=== PATIENT | male | born 1960 | race Caucasian/White ===

== ENCOUNTER 2018-03-23 08:29 | Inpatient (IN) | payer OTHER ==
[2018-03-23] VITALS (53 sets, daily range): BP systolic 84–153; BP diastolic 42–96
[~2018-03-23] VITALS: Ht 175.3 cm; Wt 77.6 kg
--- NOTE | ~2018-03-23 | 2DMMODE ---
[facility] [place] [employer] [place] [address] 2 D/M-MODE ECHOCARDIOGRAM Name: CHRISTIANMATA L Room #: 239-P [facility] IN .R.#: [id number] Admission: 03/23/18 Attend Phys: Estrella Carbone Discharge: Date of : 56 Date of Service: 03/24/18 0958 Report #: [id number] THIS REPORT FOR: //name// APPROVED REPORT Study performed: 03/24/2018 08:46:26 EXAM: Comprehensive 2D, Doppler, and color-flow Echocardiogram Patient Location: ICU Room #: 239 Status: routine BSA: 1.88 HR: 76 bpm BP: 123/73 mmHg Other Information Study Quality: Adequate Indications COPD Dyspnea CAD Hypertension/HDD Volumes Left Atrial Volume (Systole) Single Plane 4CH: 51.79 mL Single Plane 2CH: 60.17 mL LA ESV Index: 33.00 mL/m2 Aortic Valve AoV Peak Yordan.: 1.86 m/s AO Peak Gr.: 13.84 mmHg LVOT Max P.19 mmHg LVOT Max V: 1.02 m/s Mitral Valve E/A Ratio: 1.5 MV Decel. Time: 190.80 ms MV E Max Yordan.: 1.05 m/s MV A Yordan.: 0.71 m/s MV PHT: 55.33 ms IVRT: 96.89 ms Pulmonary Valve PV Peak Yordan.: 1.14 m/s PV Peak Gr.: 5.21 mmHg [facility] [address] [place] [address] 2 D/M-MODE ECHOCARDIOGRAM Name: ADOLFO GONZALES Patrick Room #: 239-P [facility] IN ..#: [id number] Admission: 03/23/18 Attend Phys: Estrella Carbone Discharge: Date of : 56 Date of Service: 03/24/18 0958 Report #: [id number] Pulmonary Vein P Vein S: 0.41 m/s P Vein A: 0.29 m/s P Vein D: 0.37 m/s P Vein A Dur.: 133.8 msec P Vein S/D Ratio: 1.11 Left Ventricle The left ventricle is normal size. There is normal LV segmental wall motion. There is normal left ventricular wall thickness. The left ventricular systolic function is normal. The left ventricular ejection fraction is within the normal range. LVEF is 55-60%. This study is not technically sufficient to allow evaluation of the LV diastolic function. Right Ventricle The right ventricle is normal size. The right ventricular systolic function is normal. Atria Left atrium is at the upper limits of normal. The right atrium size is normal. Aortic Valve Aortic valve is calcified. Mild aortic regurgitation. There is no aortic valvular stenosis. Mitral Valve The mitral valve is normal in structure. No mitral regurgitation. No evidence of mitral valve stenosis. Tricuspid Valve The tricuspid valve is normal in structure. There is no tricuspid valve regurgitation noted. Pulmonic Valve The pulmonary valve is normal in structure. There is no pulmonic valvular regurgitation. Great Vessels The aortic root is normal in size. IVC is not well visualized. Pericardium There is no pericardial effusion. <Conclusion> The left ventricular systolic function is normal. [facility] [place] [address] [place] [address] 2 D/M-MODE ECHOCARDIOGRAM Name: ADOLFO GONZALES Patrick Room #: 239-[facility] IN ..#: [id number] Admission: 03/23/18 Attend Phys: Estrella Carbone Discharge: Date of : 56 Date of Service: 03/24/18957 Report #: [id number] There is normal LV segmental wall motion. LVEF 55-60%. Aortic valve is calcified. Mild aortic regurgitation, no stenosis. The mitral valve is normal in structure. No mitral regurgitation. There is no pericardial effusion. <ELECTRONICALLY SIGNED> By: Brian Helms MD, FACC 03/24/18957 7 7 Brian Helms MD, FACC /INF
--- NOTE | ~2018-03-23 | HC ---
[facility] [place] [address] CONSULTATION Name: ADOLFO GONZALES Patrick Room #: 239-P [facility] IN M.R.#: [id number] Admission: 03/23/18 Attend Phys: Estrella Ford Discharge: Date of : 56 Report #: [id number] THIS REPORT FOR: //name// CC: FAM unknown Estrella Ford DATE OF SERVICE: 03/23/2018 REFERRING PHYSICIAN: Dr. Ford. REASON FOR REFERRAL: Acute respiratory failure. HISTORY OF PRESENT ILLNESS: The patient is a 57-year-old white male who was transferred from [facility] with acute respiratory failure. A pulmonary consultation was requested. The patient is known to this physician. He was last hospitalized in 01/2016. He is known to have severe COPD. The patient continued to smoke. According to the family, the patient had been doing fairly well for the last couple of years. He was placed on Trilogy for several months. With that, he improved with improvement of his oxygenation and nutritional status. The patient's improvement was good enough that according to the family, Trilogy was returned to the Tre[place]. He was then given BiPAP without constipation for ongoing nocturnal ventilation. Throughout all this, he continued to smoke about half a pack a day. About 6 months ago, his was diagnosed with lung cancer. She was felt to have stage 4 disease. According to the son, because of the stress, patient's health has been declining ever since. His son states that he has been losing weight. He has noticed more edema in his legs. He has been getting weaker. He has not been wearing BiPAP at night. For the past few weeks, son noticed that his dyspnea was getting worse. The night of admission, he apparently had a syncopal episode. He was then brought to the Emergency Room. In the ER, arterial blood gas revealed pH 7.06, pCO2 of 144, pO2 of 117 on FiO2. He was intubated and was transferred to [facility]. Currently, he is sedated, hemodynamically stable. Family is present including son, daughter and the . PAST MEDICAL HISTORY: As mentioned above, COPD, severity unknown, but presumed severe, ongoing tobacco use, coronary artery disease, status post stent placement, peripheral vascular disease, hypertension, and anxiety disorder, [address] [address] CONSULTATION Name: ADOLFO GONZALES Room #: 239-P [facility] IN M.R.#: [id number] Admission: 03/23/18 Attend Phys: Estrella Ford Discharge: Date of : 56 Report #: [id number] recent onset of malnutrition with weight loss and cachexia, peripheral artery disease status post carotid endarterectomy, seizure disorder, cirrhosis, spina bifida. PAST SURGICAL HISTORY: Prior vascular stent placement in the left lower extremity, right carotid endarterectomy. ALLERGIES: LISINOPRIL, ASPIRIN. MEDICATION: Lists are reviewed which include Coreg, Glucophage, Levaquin, Medrol Dosepak, Plavix, aspirin, DuoNeb, Breo, Claritin, Cozaar, K-Dur, Percocet, Xanax, Bumex, Soma, Nitrostat, Aldactone, Spiriva. FAMILY HISTORY: Noncontributory. SOCIAL HISTORY: He is , lives at home. Continues to smoke half a pack a day. Denies any alcohol use. REVIEW OF SYSTEMS: Deferred as the patient is intubated. PHYSICAL EXAMINATION: GENERAL: He is sedated. VITAL SIGNS: Temperature is 99 degrees Fahrenheit, pulse is 90, respiratory rate is 16, blood pressure is 100/60 mmHg. HEENT: Normocephalic, atraumatic. NECK: Supple, without lymphadenopathy or thyromegaly. He is orally intubated. CHEST: Breath sounds are decreased bilaterally. Few scattered crackles in the bases. CARDIOVASCULAR: Normal S1, S2. No murmurs or gallop. There is no JVD. There is no carotid bruit. Pulses are 2+/4+ bilaterally. ABDOMEN: Soft, nontender, no organomegaly or masses felt. GENITOURINARY: Deferred. RECTAL: Deferred. EXTREMITIES: There are no cyanosis or clubbing, but remarkable for 3+ bilateral pretibial edema. LABORATORY DATA: Portable chest x-ray shows ET tube at the thoracic inlet, left lower lobe infiltrate. Electrolytes are normal, creatinine 0.6. Troponin 0.11. Arterial blood gas revealed pH 7.34, pCO2 of 63, pO2 of 73 on FiO2 of 60%. IMPRESSION: 1. Acute on chronic hypercapnic hypoxic respiratory failure. 2. Chronic obstructive pulmonary disease exacerbation, severe. 3. Chronic hypercapnic respiratory failure, he is on O2 at baseline. 4. Ongoing tobacco use, smoking less than a pack a day. 5. 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 [facility] [address] [place] [address] CONSULTATION Name: ADOLFO GONZALES Room #: 239-P [facility] IN M.R.#: [id number] Admission: 03/23/18 Attend Phys: Estrella Ford Discharge: Date of : 56 Report #: [id number] 6. Bilateral lower extremity edema, likely related to right-sided heart failure due to cor pulmonale. Recommend check an echocardiogram. 7. Left lower lobe infiltrates, suspect pneumonia, possible aspiration. 8. Coronary artery disease, status post stent placement in the past. 9. Peripheral vascular disease status post carotid endarterectomy as mentioned above. 10. Transient hypotension, much improved, likely due to volume depletion, medication. RECOMMENDATION: We will continue mechanical ventilation, wean O2 for saturation 90%. Agree with broad-spectrum antibiotics, corticosteroids. Agree with Doppler ultrasound to rule out DVT. Would also recommend echocardiogram. DVT and GI prophylaxis is recommended. The above findings were discussed with the patient's children along with the . My concerns are his COPD has slightly worsened over time, especially given recent weight loss. Suspect his pulmonary impairment is likely severe. Overall, prognosis is felt to be guarded. Thank you for this consultation. <ELECTRONICALLY SIGNED> By: Beltran Fajardo MD 03/24/18 1214 1611 3150 Beltran Fajardo MD /nt
[~2018-03-23 08:29] MED LIST: ACCUNEB SO1.25 MG/1 INH; ALBUTEROL SULFAT4 MG PO; ALDACTONE50 MG PO; ALPRAZOLAM 0.50.5 M1 PO; ASPIRIN EC81 M1 PO; BAYER CHEWABLE81 MG PO; BREO ELLIPTA 11 EACH IH; BUMETANIDE0.25 MG/1 PO; BYSTOLIC 5 MG5 M1 PO; CARISOPRODOL 3350 MG PO; CARVEDILOL12.5 MG PO; CHANTIX1 MG; CLARITIN10 MG PO; COREG6.25 MG PO; COZAAR 50 MG TA50 M2 PO; DIOVAN40 MG PO; DIVALPROEX SOD250 M3 PO; DOXYCYCLINE 10100 M2 PO; FENOFIBRATE145 MG PO; KEPPRA 500 MG500 M1 PO; LASIX 20 MG TAB20 MG PO; LEVAQUIN 250 M250 MG PO; LEVAQUIN 500 M500 M2 PO; LISINOPRIL10 MG PO; LOPRESSOR 50 MG50 M1 PO; MEDROLDOSEPACK PO; METFORMIN HCL500 MG PO; MUCINEX TA600 MG/TA2 PO; NICOTINE TRANSD21 M1 TRANSDERM; NITROGLYCERIN0.4 MG SUBLING; PACERONE 200 M200 M1 PO; PAXIL20 MG PO; PERCOCET 10-321 EACH PO; PERCOCET 7.5-31 EACH PO; PERCOCET PO; PLAVIX 75 MG TA75 MG PO; POTASSIUM20 PO; PREDNISONE 10 M10 M1 PO; PREDNISONE 10 M10 MG PO; PREDNISONE 20 M20 M1 PO; PREDNISONE 20 M20 MG PO; PROMETHAZINE/C118 ML PO; PROPRANOLOL 1010 MG PO; PROTONIX 20 MG20 M1 PO; SIMVASTATIN40 MG PO; SPIRIVA INH; XANAX 0.5 MG0.5 MG PO; ZANTAC 150MG T150 M1 PO
[2018-03-23 10:07] LABS: BE(vivo) 5.8 mmol/L (-2 to +3); HCO3 33.3 mmol/L (22.0-26.0); PCO2 63.1 mmHg (35.0-45.0); sO2 93.4 % (92.0-98.0)
[2018-03-23 11:03] LABS: CALCIUM 8.1 mg/dL (8.5-10.1); CREATININE 0.6 mg/dL (0.7-1.3); MAGNESIUM 1.5 mg/dL (1.8-2.4)
[2018-03-23] MEDS ORDERED: ALBUTEROL2.5 MG/31 INH (16:18)
[2018-03-23] MEDS ORDERED: PERCOCET 10-321 EAC1 PO (18:10)
[2018-03-23] MEDS ORDERED: VITAMIN D50000 UNIT PO (18:12)
[2018-03-23] MEDS ORDERED: UNICOMPLEX M TA1 TA1 PO (18:13)
[2018-03-23] MEDS ORDERED: VISTARIL 25 MG25 M1 PO (18:14)
[2018-03-23] MEDS ORDERED: SIMVASTATIN40 MG PO (18:15)
[2018-03-23] MEDS ORDERED: PREDNISONE 20 M20 MG PO (18:16)
[2018-03-24] VITALS (18 sets, daily range): BP systolic 97–155; BP diastolic 55–110
[2018-03-24 04:58] LABS: BE(vivo) 7.1 mmol/L (-2 to +3); HCO3 30.8 mmol/L (22.0-26.0); PO2 90.7 mmHg (80.0-100.0); pH 7.504 (7.360-7.450); sO2 97.5 % (92.0-98.0)
[2018-03-24 06:53] LABS: HEMOGLOBIN 11.4 gm/dL (14.0-18.0); MCH 27.8 pg (26.0-34.0)
[2018-03-24 06:54] LABS: HEMATOCRIT 34.4 % (42.0-52.0); MCHC 33.2 g/dL (28.0-37.0); MCV 83.7 fL (80.0-100.0); RBC 4.12 mil/uL (4.50-6.00); RDW 15.8 % (10.5-14.5); WBC 10.3 thou/uL (4.0-11.0)
[2018-03-24 07:10] LABS: ALBUMIN 2.1 g/dL (3.4-5.0); CALCIUM 8.1 mg/dL (8.5-10.1); CREATININE 0.6 mg/dL (0.7-1.3); MAGNESIUM 1.7 mg/dL (1.8-2.4); POTASSIUM 4.1 mmol/L (3.5-5.1); TOTAL BILIRUBIN 0.2 mg/dL (<0.1-1.0); TOTAL PROTEIN 4.7 g/dL (6.4-8.2); TROPONIN-I 0.05 ng/mL (<0.06)
[2018-03-25] VITALS (14 sets, daily range): BP systolic 109–156; BP diastolic 54–89
[2018-03-25 05:28] LABS: BE(vivo) 3.9 mmol/L (-2 to +3); HCO3 27.5 mmol/L (22.0-26.0); PCO2 38.1 mmHg (35.0-45.0); PO2 109.9 mmHg (80.0-100.0); pH 7.477 (7.360-7.450); sO2 98.3 % (92.0-98.0)
[2018-03-25 05:29] LABS: HEMATOCRIT 33.1 % (42.0-52.0); MCH 27.6 pg (26.0-34.0); MCHC 33.2 g/dL (28.0-37.0); MCV 83.2 fL (80.0-100.0); RBC 3.97 mil/uL (4.50-6.00); RDW 16.2 % (10.5-14.5); WBC 5.7 thou/uL (4.0-11.0)
[2018-03-25 05:40] LABS: CALCIUM 8.5 mg/dL (8.5-10.1); CREATININE 0.4 mg/dL (0.7-1.3); POTASSIUM 3.3 mmol/L (3.5-5.1)
[2018-03-26] VITALS (28 sets, daily range): BP systolic 121–161; BP diastolic 66–98
[2018-03-26 04:58] LABS: HEMATOCRIT 33.6 % (42.0-52.0); HEMOGLOBIN 11.1 gm/dL (14.0-18.0); MCH 27.4 pg (26.0-34.0); MCV 83.2 fL (80.0-100.0); RBC 4.04 mil/uL (4.50-6.00); RDW 16.6 % (10.5-14.5)
[2018-03-26 05:10] LABS: CALCIUM 8.2 mg/dL (8.5-10.1); CREATININE 0.4 mg/dL (0.7-1.3); POTASSIUM 4.1 mmol/L (3.5-5.1)
[2018-03-26 05:14] LABS: BE(vivo) 1.5 mmol/L (-2 to +3); HCO3 26.9 mmol/L (22.0-26.0); PCO2 45.6 mmHg (35.0-45.0); PO2 105.3 mmHg (80.0-100.0); pH 7.389 (7.360-7.450); sO2 97.7 % (92.0-98.0)
[2018-03-26] MEDS ORDERED: XANAX 0.5 MG0.5 MG PO (13:34)
[2018-03-26] MEDS ORDERED: PERCOCET 10-321 EACH PO (13:36)
[2018-03-27] VITALS (28 sets, daily range): BP systolic 122–196; BP diastolic 63–113
[2018-03-27 04:31] LABS: CALCIUM 8.2 mg/dL (8.5-10.1); CREATININE 0.3 mg/dL (0.7-1.3); POTASSIUM 4.4 mmol/L (3.5-5.1)
[2018-03-27 04:32] LABS: HEMATOCRIT 33.7 % (42.0-52.0); HEMOGLOBIN 11.1 gm/dL (14.0-18.0); MCH 27.5 pg (26.0-34.0); MCHC 32.8 g/dL (28.0-37.0); MCV 83.8 fL (80.0-100.0); RBC 4.03 mil/uL (4.50-6.00); RDW 16.7 % (10.5-14.5); WBC 5.3 thou/uL (4.0-11.0)
[2018-03-27 08:06] LABS: PCO2 46.6 mmHg (35.0-45.0); PO2 77.4 mmHg (80.0-100.0); pH 7.441 (7.360-7.450); sO2 95.8 % (92.0-98.0)
[2018-03-28] VITALS (20 sets, daily range): BP systolic 110–158; BP diastolic 59–136
[2018-03-28 04:22] LABS: CALCIUM 8.3 mg/dL (8.5-10.1); CREATININE 0.3 mg/dL (0.7-1.3)
[2018-03-28 04:31] LABS: HEMATOCRIT 36.2 % (42.0-52.0); MCH 27.4 pg (26.0-34.0); MCHC 33.1 g/dL (28.0-37.0); MCV 82.9 fL (80.0-100.0); RBC 4.37 mil/uL (4.50-6.00); RDW 16.3 % (10.5-14.5); WBC 7.3 thou/uL (4.0-11.0)
[2018-03-28 05:39] LABS: BE(vivo) 11.9 mmol/L (-2 to +3); HCO3 35.2 mmol/L (22.0-26.0); PCO2 40.4 mmHg (35.0-45.0); PO2 123.6 mmHg (80.0-100.0); pH 7.558 (7.360-7.450); sO2 98.8 % (92.0-98.0)
[2018-03-29] VITALS (7 sets, daily range): BP systolic 112–164; BP diastolic 70–96
[2018-03-29 06:43] LABS: HEMATOCRIT 37.6 % (42.0-52.0); HEMOGLOBIN 12.4 gm/dL (14.0-18.0); MCH 27.3 pg (26.0-34.0); MCHC 33.1 g/dL (28.0-37.0); MCV 82.5 fL (80.0-100.0); RBC 4.55 mil/uL (4.50-6.00); RDW 16.6 % (10.5-14.5); WBC 7.9 thou/uL (4.0-11.0)
[2018-03-29 06:53] LABS: CALCIUM 8.4 mg/dL (8.5-10.1); CREATININE 0.4 mg/dL (0.7-1.3); POTASSIUM 3.7 mmol/L (3.5-5.1)
[2018-03-29 10:50] LABS: URINE BILIRUBIN NEGATIVE (Negative); URINE BLOOD NEGATIVE (Negative); URINE CLARITY CLEAR; URINE COLOR YELLOW; URINE GLUCOSE-RANDOM* NEGATIVE (Negative); URINE KETONES NEGATIVE (Negative); URINE LEUKOCYTES-REFLEX NEGATIVE (Negative); URINE PROTEIN (DIPSTICK) NEGATIVE (Negative); URINE SPECIFIC GRAVITY <= 1.005 (1.005-1.035)
[2018-03-29 10:51] LABS: URINE NITRITE-REFLEX POSITIVE (Negative)
[2018-03-29 10:58] LABS: BACTERIA-REFLEX 1-9 Few /HPF (None Seen); CASTS None Seen /LPF (None Seen); CRYSTALS None Seen /LPF (None Seen); SQUAMOUS None Seen /LPF (0-3); URINE RBC 0-2 Rare /HPF (0-2); URINE WBC-REFLEX None Seen /HPF (0-5)
[2018-03-30 03:52] VITALS: BP 113/65
[2018-03-30 07:18] VITALS: BP 143/74
[2018-03-30 11:18] VITALS: BP 123/87
[2018-03-30 15:21] VITALS: BP 109/70
[2018-03-30 19:28] VITALS: BP 139/51
[2018-03-31 04:00] VITALS: BP 103/79
[2018-03-31 06:12] LABS: ALBUMIN 2.8 g/dL (3.4-5.0); CALCIUM 8.6 mg/dL (8.5-10.1); CREATININE 0.4 mg/dL (0.7-1.3); PHOSPHORUS 2.8 mg/dL (2.5-4.9); POTASSIUM 3.9 mmol/L (3.5-5.1)
[2018-03-31 06:23] VITALS: BP 142/56
[2018-03-31 08:28] VITALS: BP 134/82
[2018-03-31] MEDS ORDERED: LEVAQUIN 500 M500 M2 PO (08:55)
[2018-03-31] MEDS ORDERED: PREDNISONE 5 MG5 M1 PO (08:59)
[2018-03-31 11:48] VITALS: BP 134/82
== END 2018-03-31 12:08 | disposition home health service (06) | DRG 207 ==
LOC: ICU 08:29 → 3W 03-28 17:41 → ENTRNSPT 03-31 11:59 → EDTRNSPTSTS 03-31 12:01 → 3W 03-31 12:08
PROVIDERS: Hospitalist; Internal Medicine Pulmonary Disease; Nurse Practitioner Family
DX: J96.22 Acute and chronic respiratory failure with hypercapnia (principal); G93.40 Encephalopathy, unspecified; J18.1 Lobar pneumonia, unspecified organism; J44.1 Chronic obstructive pulmonary disease with (acute) exacerbation; F11.20 Opioid dependence, uncomplicated; J98.11 Atelectasis; J44.0 Chronic obstructive pulmonary disease with (acute) lower respiratory infection; J96.21 Acute and chronic respiratory failure with hypoxia; I25.10 Atherosclerotic heart disease of native coronary artery without angina pectoris; I73.9 Peripheral vascular disease, unspecified; I10 Essential (primary) hypertension; F41.9 Anxiety disorder, unspecified; G40.909 Epilepsy, unspecified, not intractable, without status epilepticus; F17.210 Nicotine dependence, cigarettes, uncomplicated; I95.89 Other hypotension; E83.42 Hypomagnesemia; E78.5 Hyperlipidemia, unspecified; I27.81 Cor pulmonale (chronic); R49.0 Dysphonia; F41.8 Other specified anxiety disorders; G89.29 Other chronic pain; M54.9 Dorsalgia, unspecified; Z95.5 Presence of coronary angioplasty implant and graft; Z88.6 Allergy status to analgesic agent; Z88.8 Allergy status to other drugs, medicaments and biological substances; Z79.82 Long term (current) use of aspirin; Z86.73 Personal history of transient ischemic attack (TIA), and cerebral infarction without residual deficits; I25.2 Old myocardial infarction; Q05.9 Spina bifida, unspecified; Z79.899 Other long term (current) drug therapy
CPT/HCPCS: 10078; 10779; 27000

== ENCOUNTER 2018-04-10 11:28 | Inpatient (IN) | payer OTHER ==
[2018-04-10] VITALS (50 sets, daily range): BP systolic 76–137; BP diastolic 54–82
--- NOTE | ~2018-04-10 | EKG ---
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 ADAMS : 1960 Requested By: Efra Blake Order Number: [id number] MD: Brian Helms Measurements Intervals [place] Rate: 95 P: -20 NE: 137 QRS: 73 QRSD: 82 T: 84 QT: 423 QTc: 532 Interpretive Statements Sinus rhythm Probable left atrial enlargement Abnormal R-wave progression, early transition Borderline T wave abnormalities Prolonged QT interval Compared to ECG 08/24/2015 14:48:48 T-wave abnormality now present Prolonged QT interval now present Atrial premature complex(es) no longer present Electronically Signed On 04-10-2018 12:55:11 CDT by Brian Helms [email or web address] <ELECTRONICALLY SIGNED> By: Brian Helms MD, FAC 04/10/18 1255 1233 1233 Brian Helms MD, FAC /EPI
--- NOTE | ~2018-04-10 | H ---
[facility] [place] [place] [address] HISTORY AND PHYSICAL Name: ADOLFO GONZALES Patrick Room #: 241-P [facility] IN M.R.#: [id number] Admission: 04/10/18 Attend Phys: Efra Blake MD Discharge: Date of : 56 Report #: [id number] THIS REPORT FOR: //name// CC: FAM unknown Efra Blake DATE OF SERVICE: 04/10/2018 CHIEF COMPLAINT: Shortness of breath. HISTORY OF PRESENT ILLNESS: The patient is a 57-year-old male with history of severe COPD, on home oxygen 3 liter per minute, 24 hours a day, on prednisone 20 mg once a day, presented to [facility] Emergency Room secondary to worsening shortness of breath. According to the patient's , symptoms started this morning. There is no change in his mental status. In fact, his son was able to take him to the Emergency Room at [facility]. No history of any fever or chills. No cough, expectoration. Workup in the Emergency Room at [facility] showed a slightly elevated BNP of 794. His white count was elevated at 18,000. His BUN and creatinine were 18 and 0.6. Chest x-ray showed no acute abnormality. Blood gas showed [id number] respiratory failure. His initial blood gas was reported as 7.2 pH, pCO2 of 107, pO2 of 303. The patient was subsequently intubated and was flighted to [facility]. The patient is presently seen in the ICU. The patient is sedated. He does not follow any commands. Family is at bedside. PAST MEDICAL HISTORY: Significant for COPD, history of AR in the past, TIAs, seizure disorder. Had coronary stents placed in the past. No history of any peptic ulcer disease, no bleeding disorder. No history of any known cancer. He does have severe COPD, on home oxygen 3 liters per minute, on prednisone 20 mg once a day. He has been on Trilogy in the past. Apparently, he is trying to get a new Trilogy machine. His previous Trilogy was replaced with BiPAP by [facility]. He also has history of spina bifida. History of seizure and hyperlipidemia. PAST SURGICAL HISTORY: Significant for peripheral vascular disease status post stent, history of carotid endarterectomy and coronary artery disease with stents. ALLERGIES: No known drug allergy according to the family. HOME MEDICATIONS: Reviewed, please look at the nursing documentation of home medications. SOCIAL HISTORY: Still smokes half a pack a day. No history of alcohol abuse or illicit drug abuse. [address] [address] HISTORY AND PHYSICAL Name: ADOLFO GONZALES Room #: 241-P [facility] IN ..#: [id number] Admission: 04/10/18 Attend Phys: Efra Blake MD Discharge: Date of : 56 Report #: [id number] FAMILY HISTORY: Unable to obtain. REVIEW OF SYSTEMS: Unable to obtain from the patient because he is intubated. According to the patient's family, there is no nausea or vomiting, no abdominal pain, no fever or chills. He has chronic leg swelling. Apparently, his left leg is smaller than the right leg because of spina bifida. PHYSICAL EXAMINATION: VITAL SIGNS: Blood pressure is 133/71, heart rate of 80 per minute, afebrile. He is saturating 100% on 35% of FiO2. GENERAL: The patient is on a ventilator. Not responding to any verbal stimuli. EYES: Pupils equal, reactive to light. NECK: Supple, no JVD, no bruit, no lymphadenopathy. CARDIOVASCULAR: S1, S2. No S3. CHEST: Bilateral air entry present. Clear on auscultation. Very few scattered wheezes noted. ABDOMEN: Soft, bowel sounds present, no mass, no organomegaly, no tenderness. PERIPHERY: Has around 2-3+ edema in the right leg and 1-2+ pedal edema on the left leg. Dorsalis pedis 1+ bilaterally. LABORATORY DATA: Reviewed. His labs at [facility] showed a glucose of 268. BUN and creatinine are within normal limit. Magnesium slightly low at 1.4. White count was 18,000. D-dimer is elevated at 632. His BNP is 794. Chest x-ray showed no acute abnormality. He had an EKG done at [facility] which shows sinus tachycardia at rate of 121 per minute. There are occasional premature ventricular complexes, nonspecific ST segment T-wave changes. Chest x-ray done here showed no acute abnormality. ASSESSMENT AND PLAN: 1. Zlqnk-xd-galzzku respiratory failure secondary to chronic obstructive pulmonary disease exacerbation. The patient is hypercapnic. The patient will be continued on ventilator. Pulmonary has been consulted for ventilator management, will be continued on IV steroids and DuoNebs. 2. Leukocytosis. His chest x-ray showed no evidence of any infiltrate. We will obtain UA to rule out any infections, leukocytosis could be related to stress/prednisone therapy. 3. Elevated D-dimer. We will go ahead and obtain a venous Doppler of lower extremity and CTA of the chest to rule out any thromboembolism. 4. Hypomagnesemia. Magnesium will be repeated again and replace as needed. 5. Deep venous thrombosis prophylaxis. The patient will be on Lovenox for deep venous thrombosis prophylaxis. 6. Coronary artery disease status post stent. We will obtain a troponin and another EKG. 7. History of seizure disorder. The patient is on Depakote, which will be continued. [facility] [address] [place] [address] HISTORY AND PHYSICAL Name: ADOLFO GONZALES Patrick Room #: 241-P [facility] IN .R.#: [id number] Admission: 04/10/18 Attend Phys: Efra Blake MD Discharge: Date of : 56 Report #: [id number] 8. History of transient ischemic attack, on Plavix and aspirin, which will be continued. Patient's family stated that he is not allergic to any medication. Treatment plan has been explained to the patient's family at bedside in detail. <ELECTRONICALLY SIGNED> By: Efra Blake MD 04/10/18 1344 1216 1303 Efra Blake MD /nt
[~2018-04-10 11:28] MED LIST changes: +ALBUTEROL2.5 MG/31 INH; +PERCOCET 10-321 EAC1 PO; +PREDNISONE 5 MG5 M1 PO; +UNICOMPLEX M TA1 TA1 PO; +VISTARIL 25 MG25 M1 PO; +VITAMIN D50000 UNIT PO
[2018-04-10 12:29] LABS: BE(vivo) 5.6 mmol/L (-2 to +3); HCO3 33.7 mmol/L (22.0-26.0); PO2 58.9 mmHg (80.0-100.0); sO2 87.2 % (92.0-98.0)
[2018-04-10 12:30] LABS: ABSOLUTE NEUTROPHILS 9.3 thou/uL (1.4-8.2); BASOPHILS 0.7 % (0.0-2.0); EOSINOPHILS 0.2 % (0.0-3.0); HEMATOCRIT 32.8 % (42.0-52.0); LYMPHOCYTES 2.2 % (24.0-44.0); MCH 28.2 pg (26.0-34.0); MCHC 33.5 g/dL (28.0-37.0); MCV 84.2 fL (80.0-100.0); MONOCYTES 3.3 % (1.0-8.0); PLATELET COUNT 165 thou/uL (150-400); POLYS 93.6 % (36.0-66.0); WBC 9.9 thou/uL (4.0-11.0)
[2018-04-10 12:30] LABS: PCO2 68.3 mmHg (35.0-45.0); pH 7.311 (7.360-7.450)
[2018-04-10 12:43] LABS: APTT 23.1 Seconds (24.5-32.8); FIBRINOGEN 350.6 mg/dL (210-360); INR 1.1
[2018-04-10 12:47] LABS: CALCIUM 7.6 mg/dL (8.5-10.1); CREATININE 0.5 mg/dL (0.7-1.3); POTASSIUM 3.4 mmol/L (3.5-5.1)
[2018-04-10 12:55] LABS: TROPONIN-I 0.07 ng/mL (<0.06)
[2018-04-10 12:55] LABS: URINE BILIRUBIN NEGATIVE (Negative); URINE BLOOD TRACE (Negative); URINE CLARITY CLEAR; URINE COLOR YELLOW; URINE GLUCOSE-RANDOM* NEGATIVE (Negative); URINE KETONES NEGATIVE (Negative); URINE LEUKOCYTES-REFLEX NEGATIVE (Negative); URINE NITRITE-REFLEX NEGATIVE (Negative); URINE PROTEIN (DIPSTICK) 2+ (Negative); URINE SPECIFIC GRAVITY >= 1.030 (1.005-1.035); URINE UROBILINOGEN 0.2 E.U./dl (0.2-1.0)
[2018-04-10 13:04] LABS: CASTS None Seen /LPF (None Seen); CRYSTALS None Seen /LPF (None Seen); SQUAMOUS 0-3 Few /LPF (0-3); URINE RBC None Seen /HPF (0-2); URINE WBC-REFLEX None Seen /HPF (0-5)
[2018-04-10 13:05] LABS: BACTERIA-REFLEX 1-9 Few /HPF (None Seen)
[2018-04-11] VITALS (92 sets, daily range): BP systolic 74–137; BP diastolic 45–98
[2018-04-11 03:46] LABS: ALBUMIN 2.3 g/dL (3.4-5.0); CALCIUM 8.2 mg/dL (8.5-10.1); CREATININE 0.4 mg/dL (0.7-1.3); MAGNESIUM 1.8 mg/dL (1.8-2.4); POTASSIUM 4.3 mmol/L (3.5-5.1); TOTAL BILIRUBIN 0.3 mg/dL (<0.1-1.0); TOTAL PROTEIN 5.2 g/dL (6.4-8.2)
[2018-04-11 04:18] LABS: ABSOLUTE NEUTROPHILS 7.8 thou/uL (1.4-8.2); BASOPHILS 0.1 % (0.0-2.0); HEMATOCRIT 29.5 % (42.0-52.0); HEMOGLOBIN 10.1 gm/dL (14.0-18.0); LYMPHOCYTES 6.9 % (24.0-44.0); MCH 28.2 pg (26.0-34.0); MCHC 34.1 g/dL (28.0-37.0); MCV 82.7 fL (80.0-100.0); MONOCYTES 2.8 % (1.0-8.0); PLATELET COUNT 153 thou/uL (150-400); POLYS 90.2 % (36.0-66.0); RBC 3.56 mil/uL (4.50-6.00); RDW 17.4 % (10.5-14.5); WBC 8.7 thou/uL (4.0-11.0)
[2018-04-11 05:35] LABS: BE(vivo) 5.8 mmol/L (-2 to +3); HCO3 31.1 mmol/L (22.0-26.0); PCO2 48.7 mmHg (35.0-45.0); PO2 62.8 mmHg (80.0-100.0); pH 7.423 (7.360-7.450); sO2 92.3 % (92.0-98.0)
[2018-04-11 09:05] LABS: BE(vivo) 7.1 mmol/L (-2 to +3); HCO3 32.4 mmol/L (22.0-26.0); PCO2 49.9 mmHg (35.0-45.0)
[2018-04-11 14:09] LABS: BE(vivo) 6.4 mmol/L (-2 to +3); HCO3 31.2 mmol/L (22.0-26.0); PCO2 46.2 mmHg (35.0-45.0); PO2 92.8 mmHg (80.0-100.0); pH 7.447 (7.360-7.450); sO2 97.3 % (92.0-98.0)
[2018-04-12] VITALS (35 sets, daily range): BP systolic 126–164; BP diastolic 68–103
[2018-04-12 05:41] LABS: BE(vivo) 5.9 mmol/L (-2 to +3); HCO3 30.9 mmol/L (22.0-26.0); PCO2 46.5 mmHg (35.0-45.0); PO2 90.9 mmHg (80.0-100.0); sO2 97.1 % (92.0-98.0)
[2018-04-12 05:58] LABS: ABSOLUTE NEUTROPHILS 5.2 thou/uL (1.4-8.2); BASOPHILS 0.1 % (0.0-2.0); HEMOGLOBIN 9.5 gm/dL (14.0-18.0); LYMPHOCYTES 7.6 % (24.0-44.0); MCH 28.1 pg (26.0-34.0); MCV 82.9 fL (80.0-100.0); MONOCYTES 2.3 % (1.0-8.0); PLATELET COUNT 122 thou/uL (150-400); RBC 3.37 mil/uL (4.50-6.00); RDW 17.1 % (10.5-14.5); WBC 5.7 thou/uL (4.0-11.0)
[2018-04-12 06:10] LABS: CALCIUM 8.4 mg/dL (8.5-10.1); CREATININE 0.4 mg/dL (0.7-1.3); MAGNESIUM 1.6 mg/dL (1.8-2.4); POTASSIUM 4.1 mmol/L (3.5-5.1)
[2018-04-12 11:21] LABS: BE(vivo) 4.9 mmol/L (-2 to +3); HCO3 29.1 mmol/L (22.0-26.0); PCO2 41.4 mmHg (35.0-45.0); PO2 80.5 mmHg (80.0-100.0); pH 7.465 (7.360-7.450); sO2 96.4 % (92.0-98.0)
[2018-04-13] VITALS (17 sets, daily range): BP systolic 117–164; BP diastolic 60–120
[2018-04-13 04:01] LABS: HEMATOCRIT 30.9 % (42.0-52.0); HEMOGLOBIN 10.6 gm/dL (14.0-18.0); MCH 28.4 pg (26.0-34.0); MCHC 34.3 g/dL (28.0-37.0); MCV 82.7 fL (80.0-100.0); RBC 3.73 mil/uL (4.50-6.00); WBC 4.3 thou/uL (4.0-11.0)
[2018-04-13 04:15] LABS: CALCIUM 7.8 mg/dL (8.5-10.1); CREATININE 0.3 mg/dL (0.7-1.3); POTASSIUM 3.5 mmol/L (3.5-5.1)
[2018-04-14 04:04] VITALS: BP 156/87
[2018-04-14 05:33] LABS: HEMATOCRIT 35.2 % (42.0-52.0); HEMOGLOBIN 11.8 gm/dL (14.0-18.0); MCH 27.6 pg (26.0-34.0); MCHC 33.6 g/dL (28.0-37.0); MCV 82.3 fL (80.0-100.0); RBC 4.27 mil/uL (4.50-6.00); RDW 17.3 % (10.5-14.5); WBC 4.5 thou/uL (4.0-11.0)
[2018-04-14 05:42] LABS: CALCIUM 8.7 mg/dL (8.5-10.1); CREATININE 0.4 mg/dL (0.7-1.3); MAGNESIUM 1.7 mg/dL (1.8-2.4)
[2018-04-14 07:22] VITALS: BP 149/74
[2018-04-14 08:39] LABS: HCO3 25.8 mmol/L (22.0-26.0); PCO2 37.4 mmHg (35.0-45.0); PO2 62.2 mmHg (80.0-100.0); pH 7.456 (7.360-7.450)
[2018-04-14 15:14] VITALS: BP 115/66
[2018-04-14 19:30] VITALS: BP 103/68
[2018-04-15 04:00] VITALS: BP 141/75
[2018-04-15 06:22] LABS: HEMATOCRIT 32.1 % (42.0-52.0); MCH 28.3 pg (26.0-34.0); MCHC 34.3 g/dL (28.0-37.0); MCV 82.7 fL (80.0-100.0); RBC 3.88 mil/uL (4.50-6.00); RDW 17.2 % (10.5-14.5); WBC 3.5 thou/uL (4.0-11.0)
[2018-04-15 06:35] LABS: CALCIUM 8.5 mg/dL (8.5-10.1); CREATININE 0.5 mg/dL (0.7-1.3); MAGNESIUM 1.4 mg/dL (1.8-2.4); POTASSIUM 4.1 mmol/L (3.5-5.1)
[2018-04-15 08:00] VITALS: BP 120/69
[2018-04-15 16:45] VITALS: BP 128/78
[2018-04-15 20:00] VITALS: BP 110/55
[2018-04-16 04:30] VITALS: BP 102/75
[2018-04-16 06:16] LABS: ABSOLUTE NEUTROPHILS 3.8 thou/uL (1.4-8.2); BASOPHILS 0.1 % (0.0-2.0); HEMATOCRIT 32.2 % (42.0-52.0); HEMOGLOBIN 10.9 gm/dL (14.0-18.0); LYMPHOCYTES 14.1 % (24.0-44.0); MCH 28.2 pg (26.0-34.0); MCHC 33.8 g/dL (28.0-37.0); MCV 83.6 fL (80.0-100.0); MONOCYTES 5.2 % (1.0-8.0); PLATELET COUNT 127 thou/uL (150-400); POLYS 80.6 % (36.0-66.0); RBC 3.85 mil/uL (4.50-6.00); RDW 17.6 % (10.5-14.5); WBC 4.7 thou/uL (4.0-11.0)
[2018-04-16 06:27] LABS: CALCIUM 8.8 mg/dL (8.5-10.1); CREATININE 0.4 mg/dL (0.7-1.3); MAGNESIUM 1.4 mg/dL (1.8-2.4); POTASSIUM 5.1 mmol/L (3.5-5.1)
[2018-04-16 07:08] VITALS: BP 112/66
[2018-04-16 16:24] VITALS: BP 105/83
[2018-04-16 18:00] VITALS: BP 131/74
[2018-04-17 05:47] LABS: HEMATOCRIT 31.5 % (42.0-52.0); HEMOGLOBIN 10.4 gm/dL (14.0-18.0); MCH 27.9 pg (26.0-34.0); MCHC 32.8 g/dL (28.0-37.0); MCV 84.9 fL (80.0-100.0); RBC 3.71 mil/uL (4.50-6.00); RDW 17.9 % (10.5-14.5); WBC 3.8 thou/uL (4.0-11.0)
[2018-04-17 06:37] LABS: CALCIUM 9.2 mg/dL (8.5-10.1); CREATININE 0.6 mg/dL (0.7-1.3); MAGNESIUM 1.2 mg/dL (1.8-2.4); POTASSIUM 4.6 mmol/L (3.5-5.1)
[2018-04-17 07:50] VITALS: BP 107/71
[2018-04-17] MEDS ORDERED: AUGMENTIN 875-1 EACH PO (10:15)
[2018-04-17] MEDS ORDERED: PREDNISONE 10 M10 MG PO ×2 (10:15→11:03)
[2018-04-17] MEDS ORDERED: MUCINEX600 MG PO (10:15)
[2018-04-17] MEDS ORDERED: MAG6464 MG PO (10:15)
[2018-04-17 10:39] VITALS: BP 107/71
== END 2018-04-17 19:08 | disposition home health service (06) | DRG 871 ==
LOC: ICU 11:28 → 4E 04-13 15:58 → SICU 04-16 17:46 → ENTRNSPT 04-17 18:37 → SICU 04-17 19:08
PROVIDERS: Hospitalist; Internal Medicine; Internal Medicine Pulmonary Disease; Nurse Practitioner Acute Care
PROC: 02HV33Z Insertion of Infusion Device into Superior Vena Cava, Percutaneous Approach (ICD-10-PCS; principal; 2018-04-10)
PROC: 0BH17EZ Insertion of Endotracheal Airway into Trachea, Via Natural or Artificial Opening (ICD-10-PCS; principal; 2018-04-10)
PROC: 5A1945Z Respiratory Ventilation, 24-96 Consecutive Hours (ICD-10-PCS; principal; 2018-04-10)
DX: A41.9 Sepsis, unspecified organism (principal); J18.9 Pneumonia, unspecified organism; J96.21 Acute and chronic respiratory failure with hypoxia; J96.22 Acute and chronic respiratory failure with hypercapnia; G93.40 Encephalopathy, unspecified; E43 Unspecified severe protein-calorie malnutrition; J44.1 Chronic obstructive pulmonary disease with (acute) exacerbation; F11.20 Opioid dependence, uncomplicated; T17.890A Other foreign object in other parts of respiratory tract causing asphyxiation, initial encounter; J44.0 Chronic obstructive pulmonary disease with (acute) lower respiratory infection; I69.951 Hemiplegia and hemiparesis following unspecified cerebrovascular disease affecting right dominant side; G40.909 Epilepsy, unspecified, not intractable, without status epilepticus; I73.9 Peripheral vascular disease, unspecified; D72.829 Elevated white blood cell count, unspecified; E83.42 Hypomagnesemia; I25.10 Atherosclerotic heart disease of native coronary artery without angina pectoris; G89.29 Other chronic pain; X58.XXXA Exposure to other specified factors, initial encounter; Y93.89 Activity, other specified; Y92.89 Other specified places as the place of occurrence of the external cause; Y99.8 Other external cause status; D63.8 Anemia in other chronic diseases classified elsewhere; F32.9 Major depressive disorder, single episode, unspecified; F41.9 Anxiety disorder, unspecified; E78.5 Hyperlipidemia, unspecified; I27.81 Cor pulmonale (chronic); Z88.6 Allergy status to analgesic agent; I25.2 Old myocardial infarction; Z95.5 Presence of coronary angioplasty implant and graft; Q05.9 Spina bifida, unspecified; Z79.899 Other long term (current) drug therapy; Z88.8 Allergy status to other drugs, medicaments and biological substances; Z68.24 Body mass index [BMI] 24.0-24.9, adult
CPT/HCPCS: 10078; 10783; 15002; 27000

== ENCOUNTER 2018-05-02 08:43 | Inpatient (IN) | payer OTHER ==
[~2018-05-02] VITALS: Ht 175.3 cm; Wt 68.5 kg
[2018-05-02] VITALS (33 sets, daily range): BP systolic 89–143; BP diastolic 55–111
--- NOTE | ~2018-05-02 | EKG ---
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 : 1960 Requested By: Felicity Pelaez Order Number: [id number] MD: Buddy Hutson Measurements Intervals [place] Rate: 80 P: -65 MS: 118 QRS: 71 QRSD: 92 T: 223 QT: 521 QTc: 602 Interpretive Statements Sinus or ectopic atrial rhythm Ventricular premature complex Borderline short MS interval Repol abnrm, prob ischemia, anterolateral lds Prolonged QT interval Compared to ECG 05/03/2018 09:41:08 Electronically Signed On 05-05-2018 12:36:10 CDT by Buddy Hutson [email or web address] <ELECTRONICALLY SIGNED> By: Buddy Hutson MD 05/05/18 1236 9 9 Buddy Hutson MD /EPI
--- NOTE | ~2018-05-02 | HC ---
[facility] [place] [address] CONSULTATION Name: ADOLFO GONZALES Patrick Room #: 219-P [facility] IN ..#: [id number] Admission: 05/02/18 Attend Phys: Rod Coffman MD Discharge: 05/15/18 Date of : 56 Report #: [id number] THIS REPORT FOR: //name// CC: Robert Coffman DATE OF SERVICE: 05/12/2018 HISTORY OF PRESENT ILLNESS: The patient is a 57-year-old white male previously known to us, readmitted with acute on chronic respiratory failure who now has been diagnosed with bilateral pulmonary emboli. The patient had an initial admission from 03/23/2018 through 03/31/2018, was able to be discharged to home. He was then readmitted on 04/10/2018 through 04/17/2018 after another acute on chronic exacerbation of respiratory failure. He was readmitted this time on 05/02/2018 with increased shortness of breath, increased heart rate and acute hypoxic hypercarbic respiratory failure, was on the ventilator. Radiographic imaging was consistent with bilateral pulmonary emboli. He has been anticoagulated. He is being monitored regarding CHF. Cardiology is involved and the plan is to have outpatient cardiac catheterization with postponement due to the pulmonary embolism. He is currently in the Intensive Care Unit. CTA of the chest also showed bilateral mucus plugging concerns and Pulmonary Medicine has been closely involved. We are seeing him in rehabilitation medicine consultation. PAST MEDICAL HISTORY: COPD, [place] in 2000, left leg stent, right endarterectomy, three seizures, which he is on medication, spina bifida with chronic back pain. Apparently, he has a leg length discrepancy, TIA. Smoker one-half pack per day. Diabetic, takes metformin a few times a week. Cirrhosis. He is on 2 liters nasal prong O2 at home. Prior history of a left CVA with residual right upper extremity weakness, and chronic hoarseness. MEDICATIONS: Please see the full medication listing. PAST SURGICAL HISTORY: Includes vitamins, herbals, and supplements. HABITS: Tobacco. Current every day smoker. No history of alcohol abuse. ALLERGIES: LISINOPRIL AND ASPIRIN. SOCIAL HISTORY: House with , one step, was on 2 liters nasal cannula, was not utilizing gait aids premorbidly. REVIEW OF SYSTEMS: He has the chronic hoarseness. He has noted history of chronic back pain. Denies any current shortness of breath. Notes he is feeling better. No chest pain. No abdominal discomfort. [facility] [address] [place] [address] CONSULTATION Name: ADOLFO GONZALES Room #: 219-P [facility]#: [id number] Admission: 05/02/18 Attend Phys: Rod Coffman MD Discharge: 05/15/18 Date of : 56 Report #: [id number] PHYSICAL EXAMINATION: GENERAL: A 57-year-old bearded white male, seen in the Intensive Care Unit. He is alert. VITAL SIGNS: Temperature 98.4, pulse 70, respirations 14, and blood pressure 128/77. NEUROLOGIC: Facies are symmetric. Nasal prong O2 is in place, currently on 2 liters. He has functional range of motion of both upper extremities. Strength is grade 4-/5. DTRs are trace to 1. LOWER EXTREMITIES: No focal calf swelling, functional range of motion with strength to grade 4-/5. DTRs are 1. ASSESSMENT: A 57-year-old white male with the following problem list: 1. Pulmonary rehabilitation. 2. Acute on chronic respiratory failure. 3. Bilateral pulmonary emboli. 4. Congestive heart failure, acute systolic. 5. Peripheral vascular disease with prior left leg stent. 6. History of seizures in the past. 7. Prior cerebrovascular accident with right upper extremity weakness. 8. History of spina bifida with chronic back pain. 9. Tobacco abuse. 10. Diabetes mellitus. PLAN: Would like to have physical therapy and occupational therapy evaluate the patient. We will defer to the hospitalist service regarding the placement of these orders with the patient's history of newly diagnosed bilateral pulmonary emboli this admission. He continues in the Intensive Care Unit. We will be glad to follow along regarding his rehab therapy issues as he further medically stabilizes. Thank you for asking us to assist in this patient's care. <ELECTRONICALLY SIGNED> By: Javan Cordova MD 05/16/18 1312 1135 1406 Javan Cordova MD /nt
--- NOTE | ~2018-05-02 | 2DMMODE ---
[facility] [place] [employer] [address] 2 D/M-MODE ECHOCARDIOGRAM Name: CHRISTIANMATA L Room #: 236-P ADM IN ..#: [id number] Admission: 05/02/18 Attend Phys: Rod Coffman MD Discharge: Date of : 56 Date of Service: 05/02/18 1418 Report #: [id number] THIS REPORT FOR: //name// APPROVED REPORT Study performed: 05/02/2018 13:42:06 EXAM: Comprehensive 2D, Doppler, and color-flow Echocardiogram Patient Location: ICU Room #: 236 Status: routine BSA: 1.89 HR: 93 bpm BP: 106/75 mmHg Other Information Study Quality: Adequate Indications COPD Dyspnea CAD Hypertension/HDD 2D Dimensions IVC: 23.00 mm Tricuspid Valve TR Peak Yordan.: 2.53 m/s TR Peak Gr.: 25.57 mmHg PA Pressure: 40.00 mmHg Left Ventricle The left ventricle is normal size. There is severe hypokinesis in the apical wall. There is severe hypokinesis in the mid-inferoseptal wall. There is severe hypokinesis in the apical septal wall. There is severe hypokinesis in the apical inferior wall. There is severe hypokinesis in the anterior wall. There is normal left ventricular wall thickness. Left ventricular ejection fraction is moderate to severely decreased.ant apex akinetic LVEF is 30%. This study is not technically sufficient to allow evaluation of the LV diastolic function. Right Ventricle The right ventricle is normal size. The right ventricular systolic [facility] [address] [place] [address] 2 D/M-MODE ECHOCARDIOGRAM Name: CHRISTIANMATA L Room #: 236-P ADM IN .R.#: [id number] Admission: 05/02/18 Attend Phys: Rod Coffman MD Discharge: Date of : 56 Date of Service: 05/02/18 1418 Report #: [id number] function is normal. Atria The left atrium size is normal. The right atrium size is normal. Aortic Valve The aortic valve is normal in structure. Mild aortic regurgitation. There is no aortic valvular stenosis. Mitral Valve The mitral valve is normal in structure. Trace mitral regurgitation. No evidence of mitral valve stenosis. Tricuspid Valve The tricuspid valve is normal in structure. There is trace tricuspid regurgitation. Estimated PAP 40 mmHg. There is mild-moderate pulmonary hypertension. Pulmonic Valve The pulmonary valve is normal in structure. Great Vessels The aortic root is normal in size. The inferior vena cava is dilated with no inspiratory collapse. Pericardium There is no pericardial effusion. <Conclusion> The left ventricle is normal size. Left ventricular ejection fraction is moderate to severely decreased. Left ventricular ejection fraction is moderate to severely decreased.ant apex akinetic LVEF is 30%. This study is not technically sufficient to allow evaluation of the LV diastolic function. The right ventricle is normal size. The left atrium size is normal. Mild aortic regurgitation. Trace mitral regurgitation. There is trace tricuspid regurgitation. Estimated PAP [address] [facility] [address] [place] [address] 2 D/M-MODE ECHOCARDIOGRAM Name: CHRISTIANMATA L Room #: 236-P [facility] IN .R.#: [id number] Admission: 05/02/18 Attend Phys: Rod Coffman MD Discharge: Date of : 56 Date of Service: 05/02/181417 Report #: [id number] There is mild-moderate pulmonary hypertension. There is no pericardial effusion. <ELECTRONICALLY SIGNED> By: Luis Miguel Ramires MD, FACC 05/02/181417 17 17 Luis Miguel Ramires MD, FACC /INF
--- NOTE | ~2018-05-02 | EKG ---
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 : 1960 Requested By: Felicity Pelaez Order Number: [id number] MD: Brian Helms Measurements Intervals [place] Rate: 108 P: [place]: QRS: 76 QRSD: 91 T: 241 QT: 390 QTc: 523 Interpretive Statements Sinus tachycardia with frequent supraventricular complexes, occasional premature ventricular complexes Repol abnrm, prob ischemia, anterolateral lds Artifact in lead(s) I,III,aVR,aVL,aVF Compared to ECG 05/05/2018 08:20:50 Supraventricular ectopy is now present Electronically Signed On 05-08-2018 8:42:13 CDT by Brian Helms [email or web address] <ELECTRONICALLY SIGNED> By: Brian Helms MD, [facility] 05/08/18 0842 Brian Helms MD, [facility] /EPI
--- NOTE | ~2018-05-02 | EKG ---
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 <ELECTRONICALLY SIGNED> By: Buddy Hutson MD 05/05/18799 0 0 Buddy Hutson MD /EPI
--- NOTE | ~2018-05-02 | HC ---
[facility] [place] [address] CONSULTATION Name: ADOLFO GONZALES Patrick Room #: 236-[facility] IN M.R.#: [id number] Admission: 05/02/18 Attend Phys: Rod Coffman MD Discharge: Date of : 56 Report #: [id number] THIS REPORT FOR: //name// CC: FAM unknown Robert Venturabenigno Coffman DATE OF SERVICE: 05/02/2018 REFERRING PROVIDER: Dr. Ford. REASON FOR CONSULTATION: Respiratory failure. CHIEF COMPLAINT: Shortness of breath. HISTORY OF PRESENT ILLNESS: Our group was asked to see the patient in consultation while hospitalized in ICU at [facility]. The patient's and son were at the bedside. The patient was just transferred in from [facility] and arrived this morning, apparently presented to the Emergency Department there with increasing shortness of breath and some cough. He has been trying to use his BiPAP off and on, wore it last night, but presented again with more shortness of breath. The patient was severely hypercapnic and placed on BiPAP there. Unfortunately, he has also received 2 mg of lorazepam prior to transfer here, is poorly responsive at this time. states he has resumed smoking, but did begin Chantix to assist with smoking cessation. He is also noted to be in sinus tachycardia with some either PVCs or bigeminy, was given some beta blockers in the Emergency Department there and had some hypotension as a consequence. He was improved, currently is on BiPAP 19/07, with 70% FiO2 with respiratory rate in the 30s. Currently sedate as mentioned, tachypneic and difficulty obtaining further history. ALLERGIES: LISINOPRIL AND ASPIRIN. PAST MEDICAL HISTORY: 1. Severe COPD. 2. Chronic hypoxemia, respiratory failure. 3. Recurrent respiratory infections and exacerbations of COPD. 4. Ongoing tobacco abuse. 5. Coronary artery disease. 6. Peripheral vascular disease. 7. Hypertension. 8. Anxiety disorder. 9. Seizure disorder. 10. History of cirrhosis. 11. History of carotid artery disease with endarterectomy. [facility] [address] [place] [address] CONSULTATION Name: ADOLFO GONZALES Patrick Room #: 236-P [facility] IN ..#: [id number] Admission: 05/02/18 Attend Phys: Rod Coffman MD Discharge: Date of : 56 Report #: [id number] SOCIAL HISTORY: The patient is an active smoker. Lives with family. FAMILY HISTORY: Unobtainable. REVIEW OF SYSTEMS: Unobtainable at this time due to his mental status. OUTPATIENT MEDICATIONS: Include Depakote, Xanax, Coreg, Plavix, oxycodone, fenofibrate, temazepam and prednisone as well as DuoNebs. PHYSICAL EXAMINATION: VITAL SIGNS: Afebrile, pulse 90s and regular. Respiratory rate 30, on BiPAP. Blood pressure 99/55. GENERAL: This is a middle-aged male, in significant respiratory distress. ENT: Unassessed due to mask in place. NECK: Supple, no lymphadenopathy. LUNGS: Diminished with prolonged expiratory phase. Diffuse wheezes. CARDIOVASCULAR: Heart was regular. No murmurs noted. ABDOMEN: Soft, nontender, no masses. EXTREMITIES: With some chronic venous stasis changes. Right lower extremity wounds were wrapped with [place] wrap with 1+ edema. LABORATORY DATA: Chest x-ray from [facility] showed no acute findings. Initial pH was 7.26, pCO2 of 93, pO2 of 57 and bicarbonate of 33 prior to BiPAP. Lactic acid was 1.8. Sodium 145, potassium 4.5, chloride 104, bicarbonate 38, BUN 15, creatinine 0.6, glucose 104, ALT and AST normal. IMPRESSION: 1. Acute on chronic hypercapnic respiratory failure. 2. Respiratory distress. 3. Ongoing tobacco abuse. 4. Chronic obstructive pulmonary disease with acute exacerbation. 5. History of coronary artery disease. 6. Hypotension. SUGGESTIONS: 1. Continue ICU care. 2. Continue noninvasive positive pressure ventilation for support. 3. Follow up arterial blood gas. 4. Consider pulmonary embolism workup including lower extremity venous Doppler, echo and possible CT chest when stable for transport. 5. Follow up chest x-ray here. 6. Systemic steroids. 7. Frequent bronchodilators. 8. The patient may require intubation if not improving given his respiratory distress. 9. Additional recommendations to follow. [address] [address] CONSULTATION Name: ADOLFO GONZALES Patrick Room #: 236-P [facility] IN M.R.#: [id number] Admission: 05/02/18 Attend Phys: Rod Coffman MD Discharge: Date of : 56 Report #: [id number] Total critical care time 40 minutes, not including any procedures. By: 1036 1212 Jeevan Davis MD /nt
[~2018-05-02 08:43] MED LIST changes: +AUGMENTIN 875-1 EACH PO; +MAG6464 MG PO; +MUCINEX600 MG PO
[2018-05-02 11:37] LABS: HCO3 35.1 mmol/L (22.0-26.0); PO2 193.2 mmHg (80.0-100.0); sO2 99.1 % (92.0-98.0)
[2018-05-02 11:38] LABS: PCO2 75.3 mmHg (35.0-45.0); pH 7.286 (7.360-7.450)
[2018-05-02 15:56] LABS: HEMATOCRIT 34.9 % (42.0-52.0); HEMOGLOBIN 11.2 gm/dL (14.0-18.0); MCH 28.5 pg (26.0-34.0); MCHC 32.1 g/dL (28.0-37.0); MCV 88.8 fL (80.0-100.0); RBC 3.93 mil/uL (4.50-6.00); RDW 20.5 % (10.5-14.5); WBC 12.6 thou/uL (4.0-11.0)
[2018-05-02 16:01] LABS: CALCIUM 9.1 mg/dL (8.5-10.1); CREATININE 0.5 mg/dL (0.7-1.3); POTASSIUM 4.7 mmol/L (3.5-5.1)
[2018-05-02 16:07] LABS: ALBUMIN 2.8 g/dL (3.4-5.0); TOTAL BILIRUBIN 0.4 mg/dL (<0.1-1.0); TOTAL PROTEIN 5.7 g/dL (6.4-8.2)
[2018-05-02 16:08] LABS: INR 1.2; PROTIME 11.9 Seconds (9.3-11.4)
[2018-05-02 18:13] LABS: BE(vivo) 6.8 mmol/L (-2 to +3); HCO3 32.6 mmol/L (22.0-26.0); PCO2 52.9 mmHg (35.0-45.0); pH 7.408 (7.360-7.450); sO2 99.1 % (92.0-98.0)
[2018-05-03] VITALS (48 sets, daily range): BP systolic 78–118; BP diastolic 53–87
[2018-05-03 03:46] LABS: HEMOGLOBIN 9.4 gm/dL (14.0-18.0); MCH 29.4 pg (26.0-34.0); MCHC 33.8 g/dL (28.0-37.0); MCV 87.1 fL (80.0-100.0); RBC 3.21 mil/uL (4.50-6.00); RDW 20.3 % (10.5-14.5); WBC 5.9 thou/uL (4.0-11.0)
[2018-05-03 03:56] LABS: ANION GAP < 0 mmol/L (7-16); BUN 28 mg/dL (7-18); CALCIUM 8.5 mg/dL (8.5-10.1); CHLORIDE 105 mmol/L (98-107); CO2 39 mmol/L (21-32); CREATININE 0.5 mg/dL (0.7-1.3); GLUCOSE 134 mg/dL (74-106); SODIUM 143 mmol/L (136-145)
[2018-05-03 05:30] LABS: BE(vivo) 8.6 mmol/L (-2 to +3); HCO3 33.8 mmol/L (22.0-26.0); PO2 107.1 mmHg (80.0-100.0); pH 7.448 (7.360-7.450)
[2018-05-04] VITALS (24 sets, daily range): BP systolic 82–126; BP diastolic 51–84
[2018-05-04 04:13] LABS: CALCIUM 8.6 mg/dL (8.5-10.1); CREATININE 0.4 mg/dL (0.7-1.3); POTASSIUM 3.5 mmol/L (3.5-5.1)
[2018-05-04 04:16] LABS: ABSOLUTE NEUTROPHILS 3.2 thou/uL (1.4-8.2); EOSINOPHILS 0.1 % (0.0-3.0); HEMATOCRIT 26.3 % (42.0-52.0); HEMOGLOBIN 8.9 gm/dL (14.0-18.0); LYMPHOCYTES 10.5 % (24.0-44.0); MCH 29.5 pg (26.0-34.0); MCHC 33.7 g/dL (28.0-37.0); MCV 87.4 fL (80.0-100.0); MONOCYTES 5.2 % (1.0-8.0); PLATELET COUNT 99 thou/uL (150-400); POLYS 84.2 % (36.0-66.0); RBC 3.01 mil/uL (4.50-6.00); WBC 3.8 thou/uL (4.0-11.0)
[2018-05-04 05:49] LABS: BE(vivo) 5.9 mmol/L (-2 to +3); HCO3 30.4 mmol/L (22.0-26.0); PCO2 43.7 mmHg (35.0-45.0); PO2 120.7 mmHg (80.0-100.0); sO2 98.5 % (92.0-98.0)
[2018-05-05] VITALS (24 sets, daily range): BP systolic 107–156; BP diastolic 62–80
[2018-05-05 05:27] LABS: ABSOLUTE NEUTROPHILS 2.7 thou/uL (1.4-8.2); BASOPHILS 0.2 % (0.0-2.0); HEMOGLOBIN 9.1 gm/dL (14.0-18.0); LYMPHOCYTES 8.1 % (24.0-44.0); MCH 29.2 pg (26.0-34.0); MCHC 33.6 g/dL (28.0-37.0); MCV 86.7 fL (80.0-100.0); MONOCYTES 6.3 % (1.0-8.0); PLATELET COUNT 103 thou/uL (150-400); POLYS 85.4 % (36.0-66.0); RBC 3.11 mil/uL (4.50-6.00); RDW 20.1 % (10.5-14.5); WBC 3.2 thou/uL (4.0-11.0)
[2018-05-05 05:37] LABS: CALCIUM 8.7 mg/dL (8.5-10.1); CREATININE 0.4 mg/dL (0.7-1.3); POTASSIUM 3.6 mmol/L (3.5-5.1)
[2018-05-06] VITALS (24 sets, daily range): BP systolic 110–160; BP diastolic 66–98
[2018-05-06 06:11] LABS: HEMATOCRIT 27.9 % (42.0-52.0); HEMOGLOBIN 9.3 gm/dL (14.0-18.0); MCH 28.9 pg (26.0-34.0); MCHC 33.5 g/dL (28.0-37.0); MCV 86.5 fL (80.0-100.0); RBC 3.23 mil/uL (4.50-6.00); RDW 20.2 % (10.5-14.5); WBC 4.3 thou/uL (4.0-11.0)
[2018-05-06 06:20] LABS: CALCIUM 8.3 mg/dL (8.5-10.1); CREATININE 0.3 mg/dL (0.7-1.3); POTASSIUM 4.1 mmol/L (3.5-5.1)
[2018-05-06 09:19] LABS: HCO3 31.9 mmol/L (22.0-26.0); PCO2 41.4 mmHg (35.0-45.0); PO2 78.4 mmHg (80.0-100.0); pH 7.504 (7.360-7.450); sO2 96.5 % (92.0-98.0)
[2018-05-07] VITALS (24 sets, daily range): BP systolic 105–171; BP diastolic 66–96
[2018-05-07 02:28] LABS: HEMATOCRIT 29.8 % (42.0-52.0); HEMOGLOBIN 9.9 gm/dL (14.0-18.0); MCH 29.2 pg (26.0-34.0); MCHC 33.2 g/dL (28.0-37.0); MCV 87.8 fL (80.0-100.0); RBC 3.39 mil/uL (4.50-6.00); RDW 20.8 % (10.5-14.5); WBC 5.4 thou/uL (4.0-11.0)
[2018-05-07 02:43] LABS: CALCIUM 8.5 mg/dL (8.5-10.1); CREATININE 0.3 mg/dL (0.7-1.3); MAGNESIUM 1.5 mg/dL (1.8-2.4); POTASSIUM 3.5 mmol/L (3.5-5.1)
[2018-05-07 05:21] LABS: BE(vivo) 6.4 mmol/L (-2 to +3); HCO3 29.9 mmol/L (22.0-26.0); PCO2 38.7 mmHg (35.0-45.0); PO2 74.2 mmHg (80.0-100.0); pH 7.506 (7.360-7.450); sO2 96.1 % (92.0-98.0)
[2018-05-08] VITALS (39 sets, daily range): BP systolic 70–154; BP diastolic 44–90
[2018-05-08 05:24] LABS: BE(vivo) 8.3 mmol/L (-2 to +3); HCO3 32.1 mmol/L (22.0-26.0); PCO2 40.9 mmHg (35.0-45.0); PO2 64.1 mmHg (80.0-100.0); pH 7.512 (7.360-7.450); sO2 94.3 % (92.0-98.0)
[2018-05-08 05:56] LABS: MCH 29.7 pg (26.0-34.0); MCHC 34.2 g/dL (28.0-37.0); MCV 86.9 fL (80.0-100.0); RBC 3.69 mil/uL (4.50-6.00); RDW 20.3 % (10.5-14.5); WBC 7.1 thou/uL (4.0-11.0)
[2018-05-08 06:06] LABS: CALCIUM 8.8 mg/dL (8.5-10.1); CREATININE 0.3 mg/dL (0.7-1.3); POTASSIUM 3.5 mmol/L (3.5-5.1)
[2018-05-08 17:09] LABS: HEMATOCRIT 30.7 % (42.0-52.0); HEMOGLOBIN 10.3 gm/dL (14.0-18.0); MCH 29.4 pg (26.0-34.0); MCHC 33.6 g/dL (28.0-37.0); MCV 87.4 fL (80.0-100.0); RBC 3.52 mil/uL (4.50-6.00); RDW 20.7 % (10.5-14.5); WBC 6.8 thou/uL (4.0-11.0)
[2018-05-08 17:18] LABS: CALCIUM 8.4 mg/dL (8.5-10.1); CREATININE 0.3 mg/dL (0.7-1.3); POTASSIUM 3.3 mmol/L (3.5-5.1)
[2018-05-08 17:24] LABS: TOTAL BILIRUBIN 0.2 mg/dL (<0.1-1.0); TOTAL PROTEIN 4.9 g/dL (6.4-8.2)
[2018-05-08 23:43] LABS: MAGNESIUM 1.8 mg/dL (1.8-2.4); POTASSIUM 3.6 mmol/L (3.5-5.1)
[2018-05-09] VITALS (42 sets, daily range): BP systolic 109–167; BP diastolic 47–88
[2018-05-09 04:44] LABS: HEMATOCRIT 29.8 % (42.0-52.0); MCH 29.5 pg (26.0-34.0); MCHC 33.6 g/dL (28.0-37.0); MCV 87.9 fL (80.0-100.0); RBC 3.39 mil/uL (4.50-6.00); RDW 20.4 % (10.5-14.5); WBC 6.1 thou/uL (4.0-11.0)
[2018-05-09 04:45] LABS: CALCIUM 8.7 mg/dL (8.5-10.1); CREATININE 0.3 mg/dL (0.7-1.3); POTASSIUM 3.6 mmol/L (3.5-5.1)
[2018-05-09 12:34] LABS: BE(vivo) 6.8 mmol/L (-2 to +3); HCO3 30.8 mmol/L (22.0-26.0); PCO2 41.4 mmHg (35.0-45.0); pH 7.489 (7.360-7.450); sO2 96.9 % (92.0-98.0)
[2018-05-09 14:05] LABS: BE(vivo) 10.3 mmol/L (-2 to +3); HCO3 34.5 mmol/L (22.0-26.0); PCO2 45.3 mmHg (35.0-45.0); PO2 83.5 mmHg (80.0-100.0); sO2 96.9 % (92.0-98.0)
[2018-05-10] VITALS (25 sets, daily range): BP systolic 118–170; BP diastolic 62–102
[2018-05-10 05:32] LABS: BE(vivo) 6.8 mmol/L (-2 to +3); HCO3 31.3 mmol/L (22.0-26.0); PCO2 44.3 mmHg (35.0-45.0); PO2 57.8 mmHg (80.0-100.0); pH 7.467 (7.360-7.450); sO2 91.4 % (92.0-98.0)
[2018-05-10 05:47] LABS: HEMATOCRIT 27.8 % (42.0-52.0); HEMOGLOBIN 9.2 gm/dL (14.0-18.0); MCH 29.2 pg (26.0-34.0); MCV 88.4 fL (80.0-100.0); RBC 3.15 mil/uL (4.50-6.00); RDW 20.6 % (10.5-14.5); WBC 6.4 thou/uL (4.0-11.0)
[2018-05-10 05:54] LABS: CALCIUM 8.4 mg/dL (8.5-10.1); CREATININE 0.2 mg/dL (0.7-1.3); POTASSIUM 3.4 mmol/L (3.5-5.1)
[2018-05-11] VITALS (13 sets, daily range): BP systolic 106–151; BP diastolic 63–103
[2018-05-11 05:15] LABS: HEMATOCRIT 29.5 % (42.0-52.0); HEMOGLOBIN 10.2 gm/dL (14.0-18.0); MCH 29.9 pg (26.0-34.0); MCHC 34.5 g/dL (28.0-37.0); MCV 86.8 fL (80.0-100.0); RBC 3.4 mil/uL (4.50-6.00); RDW 20.1 % (10.5-14.5); WBC 5.8 thou/uL (4.0-11.0)
[2018-05-11 05:26] LABS: BE(vivo) 3.5 mmol/L (-2 to +3); HCO3 27.8 mmol/L (22.0-26.0); PCO2 41.3 mmHg (35.0-45.0); PO2 95.8 mmHg (80.0-100.0); pH 7.446 (7.360-7.450); sO2 97.5 % (92.0-98.0)
[2018-05-11 05:34] LABS: CALCIUM 8.6 mg/dL (8.5-10.1); CREATININE 0.3 mg/dL (0.7-1.3); POTASSIUM 3.7 mmol/L (3.5-5.1); TOTAL BILIRUBIN 0.4 mg/dL (<0.1-1.0); TOTAL PROTEIN 5.4 g/dL (6.4-8.2)
[2018-05-12] VITALS (7 sets, daily range): BP systolic 116–128; BP diastolic 69–82
[2018-05-12 05:16] LABS: HEMATOCRIT 31.3 % (42.0-52.0); HEMOGLOBIN 10.4 gm/dL (14.0-18.0); MCH 29.5 pg (26.0-34.0); MCHC 33.2 g/dL (28.0-37.0); MCV 88.9 fL (80.0-100.0); RBC 3.52 mil/uL (4.50-6.00); RDW 20.8 % (10.5-14.5); WBC 5.2 thou/uL (4.0-11.0)
[2018-05-12 05:26] LABS: CALCIUM 8.6 mg/dL (8.5-10.1); CREATININE 0.5 mg/dL (0.7-1.3); POTASSIUM 3.9 mmol/L (3.5-5.1)
[2018-05-13 05:32] VITALS: BP 155/76
[2018-05-13 07:08] LABS: HEMATOCRIT 39.1 % (42.0-52.0); MCH 29.3 pg (26.0-34.0); MCHC 33.1 g/dL (28.0-37.0); MCV 88.6 fL (80.0-100.0); RBC 4.41 mil/uL (4.50-6.00); RDW 20.8 % (10.5-14.5); WBC 7.4 thou/uL (4.0-11.0)
[2018-05-13 07:15] LABS: CALCIUM 8.1 mg/dL (8.5-10.1); CREATININE 0.3 mg/dL (0.7-1.3); POTASSIUM 3.3 mmol/L (3.5-5.1)
[2018-05-13 07:34] LABS: HEMOGLOBIN 12.9 gm/dL (14.0-18.0)
[2018-05-13 08:00] VITALS: BP 135/108
[2018-05-13 11:30] VITALS: BP 110/68
[2018-05-13 15:59] VITALS: BP 118/76
[2018-05-13 20:15] VITALS: BP 121/89
[2018-05-14 04:55] VITALS: BP 147/87
[2018-05-14 07:30] VITALS: BP 144/75
[2018-05-14 09:03] LABS: MAGNESIUM 1.5 mg/dL (1.8-2.4); POTASSIUM 4.3 mmol/L (3.5-5.1)
[2018-05-14 11:16] VITALS: BP 105/56
[2018-05-14 15:15] VITALS: BP 104/58
[2018-05-14 19:46] VITALS: BP 100/60
[2018-05-15 08:41] VITALS: BP 122/68
[2018-05-15] MEDS ORDERED: DUONEB 2.5-0.5 M3 ML INH (09:45)
[2018-05-15] MEDS ORDERED: XARELTO15 MG PO (09:47)
[2018-05-15] MEDS ORDERED: COREG6.25 MG PO (09:49)
[2018-05-15] MEDS ORDERED: PEPCID20 MG PO (09:50)
[2018-05-15] MEDS ORDERED: PREDNISONE 10 M10 MG PO (09:51)
== END 2018-05-15 11:20 | disposition swing bed (61) | DRG 870 ==
LOC: ICU 08:43 → 2N 05-12 16:39 → ENTRNSPT 05-15 11:04 → 2N 05-15 11:20
PROVIDERS: Hospitalist; Internal Medicine Pulmonary Disease; Nurse Practitioner Adult Health; Nurse Practitioner Family
DX: A41.9 Sepsis, unspecified organism (principal); J96.21 Acute and chronic respiratory failure with hypoxia; I26.99 Other pulmonary embolism without acute cor pulmonale; I50.21 Acute systolic (congestive) heart failure; J96.22 Acute and chronic respiratory failure with hypercapnia; J44.1 Chronic obstructive pulmonary disease with (acute) exacerbation; I69.951 Hemiplegia and hemiparesis following unspecified cerebrovascular disease affecting right dominant side; D61.818 Other pancytopenia; I42.9 Cardiomyopathy, unspecified; E87.0 Hyperosmolality and hypernatremia; I25.10 Atherosclerotic heart disease of native coronary artery without angina pectoris; F41.9 Anxiety disorder, unspecified; G40.909 Epilepsy, unspecified, not intractable, without status epilepticus; K74.60 Unspecified cirrhosis of liver; F17.210 Nicotine dependence, cigarettes, uncomplicated; I95.9 Hypotension, unspecified; G89.29 Other chronic pain; M54.9 Dorsalgia, unspecified; E11.51 Type 2 diabetes mellitus with diabetic peripheral angiopathy without gangrene; F32.9 Major depressive disorder, single episode, unspecified; E87.6 Hypokalemia; I11.0 Hypertensive heart disease with heart failure; I77.1 Stricture of artery; Q05.9 Spina bifida, unspecified; Z79.82 Long term (current) use of aspirin; Z79.899 Other long term (current) drug therapy; Z88.6 Allergy status to analgesic agent; Z88.8 Allergy status to other drugs, medicaments and biological substances; I25.2 Old myocardial infarction; Z95.820 Peripheral vascular angioplasty status with implants and grafts; Z82.49 Family history of ischemic heart disease and other diseases of the circulatory system; Z83.6 Family history of other diseases of the respiratory system
CPT/HCPCS: 10078; 10081; 27000

== ENCOUNTER 2018-06-06 14:44 | Inpatient (IN) | payer OTHER ==
[2018-06-06] VITALS (44 sets, daily range): BP systolic 65–127; BP diastolic 36–114
[~2018-06-06] VITALS: Ht 175.3 cm; Wt 78.0 kg
--- NOTE | ~2018-06-06 | EKG ---
[address] [place] [address] ELECTROCARDIOGRAM REPORT Name: ADOLFO GONZALES Room #: 244-P ADM IN M.R.#: [id number] Admission: 06/06/18 Attend Phys: Carmelo Beckwith MD Discharge: Date of : 56 Report #: [id number] THIS REPORT FOR: //name// 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 : 1960 Requested By: Carmelo Beckwith Order Number: [id number] MD: Brian Helms Measurements Intervals [place] Rate: 170 P: -70 AL: 151 QRS: 8 QRSD: 112 T: QT: 261 QTc: 439 Interpretive Statements Atrial flutter with 2-1 AV conduction Multiple ventricular premature complexes Repolarization abnormality, prob rate related Compared to ECG 05/08/2018 08:35:55 Atrial flutter is replaced sinus tachycardia nonspecific change in the ST and T-wave segments Electronically Signed On 06-08-2018 13:58:34 CDT by Brian Helms [email or web address] <ELECTRONICALLY SIGNED> By: Brian Helms MD, [facility] 06/08/18 1358 1546 1546 Brian Helms MD, [facility] /EPI
--- NOTE | ~2018-06-06 | HC ---
[facility] [place] [address] CONSULTATION Name: ADOLFO GONZALES Patrick Room #: 244-P ADM IN M.R.#: [id number] Admission: 06/06/18 Attend Phys: Carmelo Beckwith MD Discharge: Date of : 56 Report #: [id number] THIS REPORT FOR: //name// CC: Carmelo Coffman MD DATE OF SERVICE: 06/06/2018 PULMONARY CRITICAL CARE CONSULTATION REFERRING PROVIDER: Rod Coffman MD REASON FOR CONSULTATION: Respiratory failure. HISTORY OF PRESENT ILLNESS: Our group was asked urgently to see the patient in consultation while hospitalized at [facility], transferred from [facility], recently transferred there from here for his chronic respiratory disease, was discharged home from [facility] about 1 week ago on home Trilogy night ventilation. He has been doing reasonably well, was smoke free using Chantix to assist with smoking cessation. According to son, the patient was in his usual state of health, got up to go outside and then became severely weak, disoriented, short of breath and brought by the assistance of police to [facility] where he was noted to be tachycardic and felt he might be having acute exacerbation with underlying obstructive lung disease. The patient subsequently was intubated, paralyzed and transferred here for further management. Laboratory did show significant anemia and appeared to be progressive based on labs from [facility] last week. Significant elevation in his liver enzymes is noted. Denied any significant cough or congestion. Had been sleeping reasonably well, currently is in what appeared to be atrial flutter/fibrillation on the monitor, heart rate 180s and hypercapnic. Other studies unavailable. Chest x-ray revealed endotracheal tube slightly high with patchy infiltrates similar to prior radiographs ____. ALLERGIES: INCLUDE LISINOPRIL AND ASPIRIN. PAST MEDICAL HISTORY: 1. Very severe COPD. 2. Chronic hypoxemic and hypercapnic respiratory failure. 3. Recurrent lower respiratory infections. 4. History of severe tobacco abuse, recently quitting. 5. Coronary artery disease. 6. Peripheral vascular disease. 7. Hypertension. 8. Anxiety disorder. [facility] [address] [place] [address] CONSULTATION Name: GONZALESADOLFO Room #: 244-P [facility] IN ..#: [id number] Admission: 06/06/18 Attend Phys: Carmelo Beckwith MD Discharge: Date of : 56 Report #: [id number] 9. Prior TIA. 10. Seizure disorder. 11. History of cirrhosis. 12. Carotid artery disease. SOCIAL HISTORY: Quit smoking about one month ago. Currently lives with family. FAMILY HISTORY: Unobtainable. REVIEW OF SYSTEMS: Unobtainable except as described due to his current status, currently intubated. PHYSICAL EXAMINATION: GENERAL: Intubated on ventilator. VITAL SIGNS: Pulse 170s and tachycardic, and regular respiratory rate of 28, still on the ventilator, blood pressure 95/71. HEENT: A 5.[address] Conjunctivae are pale. LUNGS: Clear. No wheezes. CARDIOVASCULAR: Heart extremely tachycardic. Cannot auscultate any murmurs. ABDOMEN: Soft, no masses. EXTREMITIES: Slightly cool with 2+ palpable pulses at very rapid heart rate with only some mild edema in the lower extremities. Multiple areas of ecchymosis noted. LABORATORY DATA: From this institution pending. Arterial blood gas on assist control, tidal volume 500, rate of 18, FiO2 70%, PEEP of 6 revealed pH 7.24, pCO2 of 74, pO2 of 144, bicarb 32. Other laboratories are pending at this time. Magnesium is being replaced. IMPRESSION: 1. Tachycardia, appears to be atrial flutter, atrial fibrillation. Ask Cardiology to evaluate. Continue attempts at rate control, use of adenosine did suggest atrial flutter. This may be a consequence of anemia if this has been a progressive process, may be the cause of his ____. 2. Acute on chronic hypercapnic hypoxemic respiratory failure. 3. Severe end-stage chronic obstructive pulmonary disease. 4. Anemia. 5. Elevated liver enzymes, unclear etiology. 6. History of cirrhosis. 7. History of tobacco abuse, on Chantix. SUGGEST: ICU care. Broad-spectrum antimicrobials. Cultures. Cardiology consultation. Fluid bolus. PICC line. Initial recommendations to follow. [address] [address] CONSULTATION Name: ADOLFO GONZALES Patrick Room #: 244-P [facility] IN M.R.#: [id number] Admission: 06/06/18 Attend Phys: Carmelo Beckwith MD Discharge: Date of : 56 Report #: [id number] Total critical care time 40 minutes, not including any procedures. <ELECTRONICALLY SIGNED> By: Jeevan Davis MD 06/09/18 1121 1717 2336 Jeevan Davis MD /nt
--- NOTE | ~2018-06-06 | EKG ---
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 : 1960 Requested By: Luis Miguel Ramires Order Number: [id number] MD: Brian Helms Measurements Intervals [place] Rate: 65 P: 48 DE: 159 QRS: 42 QRSD: 81 T: 61 QT: 409 QTc: 426 Interpretive Statements Sinus rhythm Frequent supraventricular complexes Abnrm T, consider ischemia, anterolateral lds Compared to ECG 05/08/2018 08:35:55 sinus rhythm has replaced atrial flutter Electronically Signed On 06-08-2018 14:05:09 CDT by Brian Helms [email or web address] <ELECTRONICALLY SIGNED> By: Brian Helms MD, [facility] 06/08/18 1405 5 5 Brian Helms MD, [facility] /EPI
--- NOTE | ~2018-06-06 | HC ---
[facility] [place] [address] CONSULTATION Name: ADOLFO GONZALES Patrick Room #: 244-P [facility] IN .R.#: [id number] Admission: 06/06/18 Attend Phys: Carmelo Beckwith MD Discharge: Date of : 56 Report #: [id number] THIS REPORT FOR: //name// CC: Carmelo Coffman HISTORY OF PRESENT ILLNESS: He was transferred here from [place]. He had been recently hospitalized last month with respiratory failure and went to a swing bed in [place] and then home. Apparently, he had progressive shortness of breath ____. Subsequently, transferred, intubated, although he was on home with hospice. So, there is a bit of a disconnect. He has been on albuterol, DuoNeb, Xarelto 15, carvedilol 6.25 b.i.d., prednisone and famotidine, losartan 50, vitamin D, simvastatin 40, Xanax 0.5, oxycodone. PAST MEDICAL HISTORY: Positive for prior infarct with a coronary stent, peripheral vascular disease with leg stents, history of seizure disorder, right carotid endarterectomy, CVA, right upper extremity weakness, depression, recurrent CHF with moderate LV dysfunction, EF was 30% last month. Right-sided chamber enlargement, mild aortic regurgitation, diabetes, tobacco, COPD, right upper extremity weakness and cirrhosis. DJD. SOCIAL HISTORY: There is a daughter present. He apparently did manage to get home. He is obviously retired. He is an everyday tobacco user. No alcohol. ALLERGIES: ASPIRIN AND LISINOPRIL. FAMILY HISTORY: Not obtainable. He was sedated. I am asked to evaluate for SVT, AFib, RVR. PHYSICAL EXAMINATION: VITAL SIGNS: Blood pressure is 130s to 140. He had received adenosine and IV Cardizem. His blood pressure is 90/60. He is minimally responsive. HEENT: Eyes reveal xanthelasmas. Pharynx is clear. NECK: Shows preserved upstrokes without JVD or bruits. LUNGS: Have prolonged respiratory phase and a few fine basilar crackles. CARDIAC: Tachycardic, S1, S2, irregularly irregular. ABDOMEN: Slightly protuberant, nontender. EXTREMITIES: Cannot palpate the distal pulses. NEUROLOGIC: He is sedated, so I cannot evaluate, although supposedly there is right-sided weakness from previous. SKIN: No open ulcers. ASSESSMENT: 1. Acute respiratory failure, recurrent issue on acute on chronic severe underlying chronic obstructive pulmonary disease. [address] [address] CONSULTATION Name: ADOLFO GONZALES Room #: 244-[facility] IN [facility]#: [id number] Admission: 06/06/18 Attend Phys: Carmelo Beckwith MD Discharge: Date of : 56 Report #: [id number] 2. History of recurrent pulmonary emboli. He is anticoagulated. 3. Cardiomyopathy, akinetic apex and aortic insufficiency. Pulmonary pressures were elevated at 40-50 range previously, coronary artery disease with prior stent, appears to have an anterior apical infarct of some duration. 4. History of cerebrovascular accident with residual weakness, chronic obstructive pulmonary disease, tobacco use, history of pancytopenia. LABORATORY WORK: Pending. Troponin is 0.09. I will need to review the lab work from Chris. RECOMMENDATIONS AND PLAN: We will continue IV amiodarone and IV Lopressor p.r.n. May need cardioversion, but cannot maintain hemodynamic pressor support. Continuing the ventilator. Recent echo showed an ejection fraction of 30%. We may consider repeating this. It is not clear what the demise was here. I have initiated IV antibiotics for possible pneumonia. A.m. labs, chest x-ray, and we will continue to follow with you. Discussed with the daughter. This is certainly a significantly ill patient. By: 1759 0023 Luis Miguel Ramires MD, FACC /nt
--- NOTE | ~2018-06-06 | P ---
[facility] [place] [address] PROCEDURE REPORT Name: ADOLFO GONZALES Patrick Room #: 244-P [facility] IN M.R.#: [id number] Admission: 06/06/18 Attend Phys: Carmelo Beckwith MD Discharge: Date of : 56 Report #: [id number] THIS REPORT FOR: //name// CC: Carmelo Coffman DATE OF SERVICE: 06/08/2018 PROCEDURE: Upper endoscopy. LOCATION: Intensive Care Unit. INDICATIONS: The patient is a 57-year-old male with multiple medical problems, admitted with respiratory failure, on the ventilator with anemia without overt bleeding. Procedure, risks, benefits, and potential complications were discussed with the patient including risk of perforation and the agreed to proceed. DESCRIPTION OF PROCEDURE: The patient was placed in left lateral decubitus position. The upper adult Olympus endoscope was inserted through the mouth into the stomach, into the second portion of duodenum and withdrawn carefully with careful inspection. MEDICATIONS: Versed 4 mg and fentanyl 100 mcg IV were given. FINDINGS: Normal esophagus, a small sliding hiatal hernia, normal stomach and normal duodenum. No evidence of GI bleeding in the upper part of the GI tract was observed. RECOMMENDATIONS: To continue present management and consider a colonoscopy when acute cardiopulmonary issues have resolved. We will follow along with you. <ELECTRONICALLY SIGNED> By: Feliberto Batres MD 06/10/18 0742 1337 15 Feliberto Batres MD /anjana
--- NOTE | ~2018-06-06 | 2DMMODE ---
[facility] [employer] [address] [place] [address] 2 D/M-MODE ECHOCARDIOGRAM Name: ADOLFO GONZALES Patrick Room #: 244-P ADM IN ..#: [id number] Admission: 06/06/18 Attend Phys: Carmelo Beckwith MD Discharge: Date of : 56 Date of Service: 06/08/18912 Report #: [id number] THIS REPORT FOR: //name// APPROVED REPORT Study performed: 06/07/2018 08:56:55 EXAM: Comprehensive 2D, Doppler, and color-flow Echocardiogram Patient Location: ICU Room #: 244 Status: on-call BSA: 1.63 HR: 77 bpm BP: 109/68 mmHg Other Information Study Quality: Adequate Indications Atrial Fibrillation Left Ventricle The left ventricle is normal size. There is normal left ventricular wall thickness. The left ventricular systolic function is normal. The left ventricular ejection fraction is within the normal range. LVEF is 55-60%. This study is not technically sufficient to allow evaluation of the LV diastolic function. Right Ventricle The right ventricle is normal size. The right ventricular systolic function is normal. Atria The left atrium size is normal. The right atrium size is normal. Aortic Valve The aortic valve is normal in structure. Aortic valve is calcified. Mild aortic regurgitation. Mitral Valve The mitral valve is normal in structure. Trace mitral regurgitation. Tricuspid Valve [facility] [address] [place] [address] 2 D/M-MODE ECHOCARDIOGRAM Name: ADOLFO GONZALES Room #: 244-P ADM IN M.R.#: [id number] Admission: 06/06/18 Attend Phys: Carmelo Beckwith MD Discharge: Date of : 56 Date of Service: 06/08/18912 Report #: [id number] The tricuspid valve is normal in structure. Unable to assess PA pressure. Pulmonic Valve The pulmonary valve is normal in structure. Great Vessels The aortic root is normal in size. The inferior vena cava is dilated with no inspiratory collapse. Pericardium There is no pericardial effusion. <Conclusion> The left ventricle is normal size. LVEF is 55-60%. This study is not technically sufficient to allow evaluation of the LV diastolic function. The right ventricular systolic function is normal. The left atrium size is normal. The aortic valve is normal in structure. Aortic valve is calcified. Mild aortic regurgitation. Trace mitral regurgitation. Trace mitral regurgitation. Unable to assess PA pressure. There is no pericardial effusion. <ELECTRONICALLY SIGNED> By: Luis Miguel Ramires MD, [facility] 06/08/18912 2 2 Luis Miguel Ramires MD, FACC /INF
[~2018-06-06 14:44] MED LIST changes: +DUONEB 2.5-0.5 M3 ML INH; +PEPCID20 MG PO; +XARELTO15 MG PO
[2018-06-06 16:25] LABS: BE(vivo) 2.6 mmol/L (-2 to +3); HCO3 31.3 mmol/L (22.0-26.0); PCO2 74.3 mmHg (35.0-45.0); PO2 143.9 mmHg (80.0-100.0); pH 7.243 (7.360-7.450); sO2 98.4 % (92.0-98.0)
[2018-06-06 20:11] LABS: ALBUMIN 1.6 g/dL (3.4-5.0); CALCIUM 7.7 mg/dL (8.5-10.1); CREATININE 0.7 mg/dL (0.7-1.3); MAGNESIUM 2.2 mg/dL (1.8-2.4); POTASSIUM 3.8 mmol/L (3.5-5.1); TOTAL BILIRUBIN 0.5 mg/dL (<0.1-1.0)
[2018-06-06 21:25] LABS: BE(vivo) 4.1 mmol/L (-2 to +3); HCO3 30.7 mmol/L (22.0-26.0); PCO2 58.8 mmHg (35.0-45.0); PO2 112.4 mmHg (80.0-100.0); pH 7.336 (7.360-7.450); sO2 97.7 % (92.0-98.0)
[2018-06-06 22:52] LABS: ICTOTEST (BILI CONFIRMATORY) Negative (Negative); URINE BILIRUBIN NEGATIVE (Negative); URINE BLOOD NEGATIVE (Negative); URINE CLARITY CLOUDY; URINE COLOR YELLOW; URINE GLUCOSE-RANDOM* NEGATIVE (Negative); URINE KETONES NEGATIVE (Negative); URINE LEUKOCYTES-REFLEX NEGATIVE (Negative); URINE NITRITE-REFLEX NEGATIVE (Negative); URINE PROTEIN (DIPSTICK) 2+ (Negative); URINE SPECIFIC GRAVITY 1.025 (1.005-1.035)
[2018-06-06 22:58] LABS: AMORPHOUS URATES Moderate /LPF (None Seen); SQUAMOUS None Seen /LPF (0-3)
[2018-06-06 22:59] LABS: BACTERIA-REFLEX 1-9 Few /HPF (None Seen); CASTS None Seen /LPF (None Seen); URINE RBC None Seen /HPF (0-2); URINE WBC-REFLEX 0-5 Rare /HPF (0-5)
[2018-06-07] VITALS (95 sets, daily range): BP systolic 84–120; BP diastolic 58–94
[2018-06-07 05:27] LABS: ABSOLUTE NEUTROPHILS 6.8 thou/uL (1.4-8.2); HEMATOCRIT 23.6 % (42.0-52.0); HEMOGLOBIN 8.1 gm/dL (14.0-18.0); LYMPHOCYTES 6.1 % (24.0-44.0); MCH 30.3 pg (26.0-34.0); MCHC 34.2 g/dL (28.0-37.0); MCV 88.7 fL (80.0-100.0); MONOCYTES 1.5 % (1.0-8.0); PLATELET COUNT 174 thou/uL (150-400); POLYS 92.4 % (36.0-66.0); RBC 2.66 mil/uL (4.50-6.00); RDW 17.9 % (10.5-14.5); WBC 7.4 thou/uL (4.0-11.0)
[2018-06-07 05:55] LABS: ALBUMIN 1.6 g/dL (3.4-5.0); CALCIUM 7.7 mg/dL (8.5-10.1); CREATININE 0.6 mg/dL (0.7-1.3); MAGNESIUM 2.1 mg/dL (1.8-2.4); TOTAL BILIRUBIN 0.4 mg/dL (<0.1-1.0)
[2018-06-07 11:46] LABS: BE(vivo) 5.6 mmol/L (-2 to +3); PCO2 50.2 mmHg (35.0-45.0); pH 7.408 (7.360-7.450); sO2 97.8 % (92.0-98.0)
[2018-06-08] VITALS (56 sets, daily range): BP systolic 97–151; BP diastolic 49–92
[2018-06-08 04:51] LABS: HEMATOCRIT 20.9 % (42.0-52.0); HEMOGLOBIN 7.1 gm/dL (14.0-18.0); MCH 30.2 pg (26.0-34.0); MCHC 33.9 g/dL (28.0-37.0); MCV 89.1 fL (80.0-100.0); RBC 2.34 mil/uL (4.50-6.00); RDW 18.1 % (10.5-14.5); WBC 4.6 thou/uL (4.0-11.0)
[2018-06-08 05:03] LABS: ALBUMIN 1.5 g/dL (3.4-5.0); CALCIUM 7.1 mg/dL (8.5-10.1); CREATININE 0.6 mg/dL (0.7-1.3); POTASSIUM 4.3 mmol/L (3.5-5.1); TOTAL BILIRUBIN 0.2 mg/dL (<0.1-1.0); TOTAL PROTEIN 4.7 g/dL (6.4-8.2)
[2018-06-08 05:22] LABS: BE(vivo) 4.3 mmol/L (-2 to +3); HCO3 28.7 mmol/L (22.0-26.0); PCO2 41.9 mmHg (35.0-45.0); PO2 127.9 mmHg (80.0-100.0); pH 7.453 (7.360-7.450); sO2 98.7 % (92.0-98.0)
[2018-06-08 15:36] LABS: BE(vivo) 3.4 mmol/L (-2 to +3); HCO3 27.8 mmol/L (22.0-26.0); PCO2 41.7 mmHg (35.0-45.0); PO2 70.5 mmHg (80.0-100.0); pH 7.442 (7.360-7.450); sO2 94.7 % (92.0-98.0)
[2018-06-09] VITALS (25 sets, daily range): BP systolic 120–169; BP diastolic 66–127
[2018-06-09 05:51] LABS: HEMATOCRIT 27.2 % (42.0-52.0); MCH 29.2 pg (26.0-34.0); MCHC 33.5 g/dL (28.0-37.0); MCV 87.1 fL (80.0-100.0); RBC 3.13 mil/uL (4.50-6.00); RDW 19.3 % (10.5-14.5); WBC 5.3 thou/uL (4.0-11.0)
[2018-06-09 05:52] LABS: HEMOGLOBIN 9.1 gm/dL (14.0-18.0)
[2018-06-09 06:21] LABS: ALBUMIN 1.6 g/dL (3.4-5.0); CALCIUM 7.9 mg/dL (8.5-10.1); CREATININE 0.5 mg/dL (0.7-1.3); TOTAL BILIRUBIN 0.4 mg/dL (<0.1-1.0); TOTAL PROTEIN 5.6 g/dL (6.4-8.2)
[2018-06-10] VITALS (24 sets, daily range): BP systolic 135–174; BP diastolic 70–101
[2018-06-10 04:37] LABS: CALCIUM 8.2 mg/dL (8.5-10.1); CREATININE 0.5 mg/dL (0.7-1.3); POTASSIUM 3.7 mmol/L (3.5-5.1)
[2018-06-10 05:53] LABS: HEMATOCRIT 29.4 % (42.0-52.0); HEMOGLOBIN 9.9 gm/dL (14.0-18.0); MCH 29.6 pg (26.0-34.0); MCHC 33.8 g/dL (28.0-37.0); MCV 87.7 fL (80.0-100.0); RBC 3.36 mil/uL (4.50-6.00); WBC 4.8 thou/uL (4.0-11.0)
[2018-06-11] VITALS (14 sets, daily range): BP systolic 118–168; BP diastolic 65–107
[2018-06-11 11:40] LABS: HEMATOCRIT 36.6 % (42.0-52.0); HEMOGLOBIN 12.4 gm/dL (14.0-18.0); MCH 29.3 pg (26.0-34.0); MCV 86.3 fL (80.0-100.0); RBC 4.24 mil/uL (4.50-6.00); RDW 18.4 % (10.5-14.5)
[2018-06-11] MEDS ORDERED: METOPROLOL5 MG/5 M2 IV PUSH (12:47)
[2018-06-11] MEDS ORDERED: SOLU-MEDRO40 MG/1 M1 IV PUSH (12:48)
[2018-06-11] MEDS ORDERED: DURAGESIC25 MCG/HR TRANSDERM (12:48)
[2018-06-11] MEDS ORDERED: ZOSYN 3.3753.375 GM IV (12:49)
[2018-06-11] MEDS ORDERED: AMIODARONE150 MG/101 IV (12:53)
[2018-06-11] MEDS ORDERED: [UNRECOGNIZED DRUG - CODE] IV (12:54)
== END 2018-06-11 17:00 | DRG 208 ==
LOC: ICU 14:44
PROVIDERS: Hospitalist; Internal Medicine Cardiovascular Disease; Internal Medicine Pulmonary Disease; Nurse Practitioner
DX: J96.21 Acute and chronic respiratory failure with hypoxia (principal); J18.9 Pneumonia, unspecified organism; I50.23 Acute on chronic systolic (congestive) heart failure; E43 Unspecified severe protein-calorie malnutrition; I48.92 Unspecified atrial flutter; J44.1 Chronic obstructive pulmonary disease with (acute) exacerbation; I42.9 Cardiomyopathy, unspecified; I47.1 Supraventricular tachycardia; K92.2 Gastrointestinal hemorrhage, unspecified; I69.951 Hemiplegia and hemiparesis following unspecified cerebrovascular disease affecting right dominant side; J44.0 Chronic obstructive pulmonary disease with (acute) lower respiratory infection; J96.22 Acute and chronic respiratory failure with hypercapnia; I25.10 Atherosclerotic heart disease of native coronary artery without angina pectoris; F41.9 Anxiety disorder, unspecified; G40.909 Epilepsy, unspecified, not intractable, without status epilepticus; D64.9 Anemia, unspecified; I48.91 Unspecified atrial fibrillation; K74.60 Unspecified cirrhosis of liver; F32.9 Major depressive disorder, single episode, unspecified; K44.9 Diaphragmatic hernia without obstruction or gangrene; G89.29 Other chronic pain; M54.9 Dorsalgia, unspecified; E87.6 Hypokalemia; E83.42 Hypomagnesemia; E11.51 Type 2 diabetes mellitus with diabetic peripheral angiopathy without gangrene; I11.0 Hypertensive heart disease with heart failure; R13.10 Dysphagia, unspecified; I27.20 Pulmonary hypertension, unspecified; I95.9 Hypotension, unspecified; Z79.899 Other long term (current) drug therapy; Z88.6 Allergy status to analgesic agent; Z99.81 Dependence on supplemental oxygen; Z79.82 Long term (current) use of aspirin; Z87.891 Personal history of nicotine dependence; Z95.820 Peripheral vascular angioplasty status with implants and grafts; Z86.711 Personal history of pulmonary embolism; I25.2 Old myocardial infarction; Z82.49 Family history of ischemic heart disease and other diseases of the circulatory system; Z83.6 Family history of other diseases of the respiratory system; Z68.25 Body mass index [BMI] 25.0-25.9, adult; Q05.9 Spina bifida, unspecified; Z79.01 Long term (current) use of anticoagulants; G47.33 Obstructive sleep apnea (adult) (pediatric)
CPT/HCPCS: 10204; 27000